=== PATIENT | female | born 1955 | race Caucasian/White ===

== ENCOUNTER → 2016-11-08 | Outpatient (CLI) | payer OTHER ==
--- NOTE | 2016-11-08 18:14 | US ---
EXAMINATION TYPE: US venous doppler duplex LE LT DATE OF EXAM: 11/08/2016 5:20 PM COMPARISON: Prior December 02, 2015 CLINICAL HISTORY: Edema R60.0 LLE. History of DVT in left leg. Patient currently taking blood thinner s SIDE PERFORMED: Left TECHNIQUE: The lower extremity deep venous system is examined utilizing real time linear array sonog ha with graded compression, doppler sonography and color-flow sonography. VESSELS IMAGED: External Iliac Vein (EIV) Common Femoral Vein Deep Femoral Vein Greater Saphenous Vein * Femoral Vein Popliteal Vein Small Saphenous Vein * Proximal Calf Veins (* superficial vessels) LEFT LOWER EXTREMITY IMPRESSION: REDEMONSTRATION OF NONOCCLUDING DVT FROM THE PROXIMAL FEMORAL VEIN TO THE MID POPLITEAL VEIN; NEGATIVE FOR ACUTE DVT.
== END | disposition home or self-care (01) ==
LOC: RADUSMAIN 16:52
PROVIDERS: ATTEND Family Medicine
DX: I82.512 Chronic embolism and thrombosis of left femoral vein (principal); I82.532 Chronic embolism and thrombosis of left popliteal vein

== ENCOUNTER → 2018-03-29 | Outpatient (CLI) | payer OTHER ==
--- NOTE | 2018-03-29 15:43 | CT ---
EXAMINATION TYPE: CT brain austin martinez DATE OF EXAM: 03/29/2018 COMPARISON: Prior CT 12/10/2015 HISTORY: Patient complains of headache and dizziness post blow to head. CT DLP: 1046.4 mGycm Automated exposure control for dose reduction was used. TECHNIQUE: CT scan of the head and cervical spine are performed without contrast. FINDINGS: There is no acute intracranial hemorrhage, mass effect, or midline shift identified. The ventricles and sulci are within normal limits in size. The globes are intact and the visualized sin uses are clear. White matter demyelination changes are again noted. Cervical spine is visualized in its entirety from C1 through upper thoracic levels and demonstrates s atisfactory alignment without evidence of acute fracture or dislocation. Multilevel spondylosis is pr esent, minimal anterolisthesis grade 1 C2-3, C3-4, retrolisthesis grade 1 C5-6 and C6-7. There is los s of disc height C5-6 and C6-7 with spondylosis. Facet arthropathy changes are present. Prevertebral soft tissue appears within normal limits. Multilevel foraminal encroachment is present. The C1-C2 ar ticulation is unremarkable. IMPRESSION: 1. There is no acute fracture or dislocation evident in the cervical spine. Degenerative disc disease and facet arthropathy. 2. No acute intracranial hemorrhage, mass effect, or midline shift is seen.
== END | disposition home or self-care (01) ==
LOC: RADCTMAIN 15:04
PROVIDERS: ATTEND Nurse Practitioner Family
DX: S09.90XA Unspecified injury of head, initial encounter (principal)
CPT/HCPCS: 70450; 72125

== ENCOUNTER 2018-08-02 13:47 | Observation (INO) | payer OTHER ==
[2018-08-02] MEDS ORDERED: ASPIRIN 81 MG PO STA (14:41)
[2018-08-02] MEDS ORDERED: MORPHINE SULFATE 2 MG/ML SYRINGE IVP ONE (15:01)
[2018-08-02 15:23] LABS: Basophils % (A) 0 %; Eosinophils # (A) 0.3 k/uL (0-0.7); Eosinophils % (A) 4 %; HGB 13.8 gm/dL (11.4-16.0); Lymphocytes # (A) 1.8 k/uL (1.0-4.8); Lymphocytes % (A) 24 %; MCHC 33.6 g/dL (31.0-37.0); MCV 95.3 fL (80.0-100.0); Mean Platelet Volume 7.7; Monocytes # (A) 0.4 k/uL (0-1.0); Monocytes % (A) 5 %; Neutrophils # (A) 4.9 k/uL (1.3-7.7); Neutrophils % (A) 65 %; Platelet Count 181 k/uL (150-450); RDW 12.5 % (11.5-15.5); WBC 7.5 k/uL (3.8-10.6)
[2018-08-02 15:34] LABS: ALT 27 U/L (9-52); AST 23 U/L (14-36); Albumin 4.2 g/dL (3.5-5.0); Alkaline Phosphatase 48 U/L (38-126); Anion Gap 8 mmol/L; Blood Urea Nitrogen 17 mg/dL (7-17); Calcium 9.4 mg/dL (8.4-10.2); Carbon Dioxide 23 mmol/L (22-30); Chloride 108 mmol/L (98-107); Glucose 93 mg/dL (74-99); Magnesium 1.9 mg/dL (1.6-2.3); Sodium 139 mmol/L (137-145); Total Bilirubin 0.5 mg/dL (0.2-1.3); Total Protein 6.4 g/dL (6.3-8.2)
--- NOTE | 2018-08-02 15:37 | ED ---
Chest Pain HPI - General Chief Complaint: Chest Pain Stated Complaint: Chest tightness, shoulder pain, nausea Time Seen by Provider: 08/02/18 14:36 Source: patient, RN notes reviewed, old records reviewed Mode of arrival: ambulatory Limitations: no limitations - History of Present Illness Initial Comments: Patient is a 63-year-old female presents emergency room today with complaints of chest tightness. Patient reports symptoms started after she had a THC pill and THC, last night. Patient reports that she took this because she has chronic pain within her back. She reports she had a rapid heart rate at that time EMS was called to the house. Patient complains of chest tightness since that time. Patient states that she's had associated shortness of breath. She denies any coughing or fevers. She reports she has history of CVA. She is currently on L Alfred. - Related Data Home Medications Medication Instructions Recorded Confirmed Citalopram Hydrobromide [CeleXA] 40 mg PO DIRECTED 12/10/15 08/02/18 Rivaroxaban [Xarelto] 15 mg PO DIRECTED 12/10/15 08/02/18 Acetaminophen [Tylenol Extra 500 mg PO Q6H PRN 08/02/18 08/02/18 Strength] Ascorbic Acid [Vitamin C] 500 mg PO DAILY 08/02/18 08/02/18 Atorvastatin [Lipitor] 80 mg PO DAILY 08/02/18 08/02/18 Cyanocobalamin (Vitamin B-12) 1,000 mcg PO 08/02/18 [Vitamin B-12] Gabapentin [Neurontin] 300 mg PO DIRECTED 08/02/18 08/02/18 Ranitidine HCl [Zantac] 150 mg PO BID 08/02/18 08/02/18 rOPINIRole HCL [Requip] 0.5 mg PO DIRECTED 08/02/18 08/02/18 Allergies Allergy/AdvReac Type Severity Reaction Status Date / Time gluten Allergy Mild Diarrhea Verified 08/02/18 15:15 Review of Systems ROS Statement: Those systems with pertinent positive or pertinent negative responses have been documented in the HPI. ROS Other: All systems not noted in ROS Statement are negative. EKG Findings - EKG Comments: EKG Findings:: EKG shows normal sinus rhythm EKG. Ventricular rate 69 bpm. SC interval is 154 ms. QS duration 68 ms. QT QTc is 422/452 ms. Past Medical History Past Medical History: Asthma, CVA/TIA, Hyperlipidemia, Hypertension Additional Past Medical History / Comment(s): 2014 CVA with minimal L sided weakness, unsure if she has had a TIA in the past, celiac disease is on gluten free diet, UTi, cervical herniated discs-neck pain, past asthma, L leg DVTs x 2 , old medical record indicates hiatal hernia and positive rheumatiod factor but pt states she is unsure of these, past migraines, sinus problems, seasonal allergies, History of Any Multi-Drug Resistant Organisms: None Reported Past Surgical History: Tonsillectomy Additional Past Surgical History / Comment(s): ANJALI in 2013, colonoscopy. Melanomia removed in feb 2018 Past Anesthesia/Blood Transfusion Reactions: No Reported Reaction Past Psychological History: Depression Smoking Status: Never smoker Past Alcohol Use History: Occasional Past Drug Use History: None Reported - Past Family History Father History Unknown: Yes Additional Family Medical History / Comment(s): Pt does not know mother or father hx- she is adopted. General Exam - General Exam Comments Initial Comments: 63-year-old female. Alert and oriented. No distress. General: Well appearing, well nourished, in no distress. Oriented x 3, normal mood and affect . Ambulating without difficulty. Skin: Good turgor, no rash, unusual bruising or prominent lesions Hair: Normal texture and distribution. Mouth: Mucous membranes moist, no mucosal lesions. Teeth/Gums: No obvious caries or periodontal disease. No gingival inflammation or significant resorption. Pharynx: Mucosa non-inflamed, no tonsillar hypertrophy or exudate Neck: Supple, without lesions, bruits, or adenopathy, thyroid non-enlarged and non-tender Heart: No cardiomegaly or thrills; regular rate and rhythm, no murmur or gallop Lungs: Clear to auscultation and percussion Abdomen: Bowel sounds normal, no tenderness, organomegaly, masses, or hernia Back: Spine normal without deformity or tenderness, no CVA tenderness Extremities: No amputations or deformities, cyanosis, edema or varicosities, peripheral pulses intact Musculoskeletal: Normal gait and station. No misalignment, asymmetry, crepitation, defects, tenderness, masses, effusions, decreased range of motion, instability, atrophy or abnormal strength or tone in the head, neck, spine, ribs , pelvis or extremities. Neurologic: CN 2-12 normal. Sensation to pain, touch, and proprioception normal. DTRs normal in upper and lower extremities. No pathologic reflexes. Psychiatric: Oriented X3, intact recent and remote memory, judgment and insight , normal mood and affect. Limitations: no limitations Course Vital Signs 08/02/18 13:58 Temperature 98.1 F Pulse Rate 77 Respiratory 18 Rate Blood Pressure 141/68 O2 Sat by Pulse 98 Oximetry Chest Pain MDM - MDM 63-year-old female presents emergency from today with 1 day of chest tightness. She reports symptoms are worse with taking a deep breath. Remaining towards her back. Patient's EKG was negative for any acute process. Patient's initial troponin today is negative. D-dimer is normal. Chest x-ray shows Minimal lingular infiltrate cardiac apex most likely subsegmental atelectasis. Patient was reevaluated afterwards she is complaining of some chest discomfort. With her history of CVA, hyperlipidemia and family history of risk factors would like to put the Patient for repeat troponin test. She is never seen a tomography technologist or had any stress test. Disposition Clinical Impression: Chest pain Disposition: ADMITTED IP TO THIS HOSP Condition: Stable Is patient prescribed a controlled substance at d/c from ED?: No Referrals: Jared Serrano DO [Primary Care Provider] - 1-2 days Time of Disposition: 16:42
[2018-08-02 15:45] LABS: D-Dimer 0.18 mg/L FEU (<0.60); INR 1.1 (<1.2); Partial Thromboplastin Time 28.3 sec (22.0-30.0); Prothrombin Time 11.4 sec (9.0-12.0)
--- NOTE | 2018-08-02 15:50 | XR ---
EXAMINATION TYPE: XR chest 2V DATE OF EXAM: 08/02/2018 COMPARISON: 12/10/2015 INDICATION: Chest pain shoulder pain nausea TECHNIQUE: Frontal and lateral views of the chest are obtained. FINDINGS: The heart size is normal. The pulmonary vasculature is normal. Minimal opacity is present at the cardiac apex. Some subsegmental atelectasis may be present. The florentin gs are otherwise clear.. IMPRESSION: 1. Minimal lingular infiltrate cardiac apex most likely subsegmental atelectasis.
[2018-08-02] MEDS ORDERED: NITROGLYCERIN SL TABS 0.4 MG TAB SUBLINGUAL PRN (16:42)
[2018-08-02] MEDS ORDERED: ACETAMINOPHEN TAB 500 MG TAB PO PRN (22:41)
[2018-08-02 22:50] LABS: Cholesterol 164 mg/dL (<200); HDL Cholesterol 58 mg/dL (40-60); LDL Cholesterol,Calculated 77 mg/dL (0-99); Triglycerides 143 mg/dL (<150)
[2018-08-02] MEDS ORDERED: ZOLPIDEM 5 MG TAB PO PRN (22:53)
[2018-08-03] MEDS: FAMOTIDINE 20 MG TAB PO SCH ×2 (02:14→17:03)
[2018-08-03 08:01] VITALS: RESP 18
[2018-08-03] MEDS ORDERED: CITALOPRAM HYDROBROMIDE 20 MG TAB PO SCH (09:00)
[2018-08-03] MEDS ORDERED: CYANOCOBALAMIN 500 MCG TAB PO SCH (09:00)
[2018-08-03] MEDS ORDERED: ASPIRIN 325 MG TAB PO SCH (09:00)
[2018-08-03] MEDS ORDERED: RIVAROXABAN 15 MG TAB PO SCH (09:00)
[2018-08-03] MEDS ORDERED: ATORVASTATIN 80 MG TAB PO SCH (09:00)
[2018-08-03] MEDS ORDERED: ASPIRIN 81 MG PO SCH (09:00)
[2018-08-03] MEDS ORDERED: ASCORBIC ACID 500 MG TAB PO SCH (09:00)
[2018-08-03] MEDS ORDERED: BACLOFEN 10 MG TAB PO SCH (14:21)
[2018-08-03] MEDS ORDERED: LISINOPRIL-HCTZ 10-12.5 MG 1 EACH TAB PO SCH (14:30)
--- NOTE | 2018-08-03 15:06 | HP ---
HISTORY AND PHYSICAL DATE OF ADMISSION: 08/02/2018 DATE OF SERVICE: 08/03/2018 PRESENT COMPLAINT: Chest pain. HISTORY OF PRESENTING COMPLAINT: A very pleasant 63-year-old patient of Dr. Ortega, chronic stable medical conditions include hypertension, hyperlipidemia, herniated disc in cervical spine, depression, celiac disease, hiatal hernia. Patient presents with 2 days of pain in the back of the head, neck, arms, tightness in the chest. No cough. No shortness of breath. Did feel a bit dizzy and tired. No swelling of the legs. No fever and no chills. No sputum production, presented for the same. No prior cardiac history. Feels a little bit better since she has been here. REVIEW OF SYSTEMS: CONSTITUTIONAL: None. HEENT As above. RESPIRATORY: None. CARDIOVASCULAR: As above GASTROINTESTINAL: None. GENITOURINARY: None. MUSCULOSKELETAL: Occasional neck pain. DERMATOLOGICAL; None. HEMATOLOGICAL: None. LYMPHATIC: None. PSYCHIATRY: None. NEUROLOGICAL: None. PAST MEDICAL HISTORY: Asthma, slight left-sided weakness prior stroke, DVT, hyperlipidemia, hypertension, pulmonary embolism, celiac disease and gluten-free diet, cervical herniated disc, hiatal hernia. PAST SURGICAL HISTORY: Tonsillectomy, ANJALI in 2013, melanoma removed. PSYCH HISTORY: Depression. SOCIAL HISTORY: , no smoking, alcohol occasionally. FAMILY HISTORY: Patient is adopted. HOME MEDICATIONS: 1. Vitamin B12 one thousand mcg p.o. daily. 2. Vitamin C 500 mg p.o. daily. 3. Requip 0.5 mg q.h.s. 4. Aspirin 81 mg p.o. daily. 5. Celexa 40 mg p.o. daily. 6. Xarelto 50 mg p.o. daily. 7. Zantac 150 mg b.i.d. 8. Lipitor 80 mg p.o. daily. 9. Tylenol 500 mg q.6 p.r.n. 10.Wellbutrin. 11.Neurontin. ALLERGIES: To GLUTEN. PHYSICAL EXAMINATION: Vital signs on presentation: Temperature 98.1, pulse 77, respirations 18, blood pressure 114/68, pulse 98% on room air. GENERAL APPEARANCE: Average built, sitting up, not in distress. EYES: Pupils equal, conjunctivae are normal. HEENT: External appearance of nose and ears normal. Oral cavity normal. NECK: JVD not raised. Mass not palpable. RESPIRATORY: Effort normal. LUNGS: Fair entry. CARDIOVASCULAR: First and second sounds normal. No edema. ABDOMEN: Soft, nontender. Liver and spleen not palpable. LYMPHATIC: No lymph node palpable. PSYCHIATRY: Alert and oriented x3. Mood and affect normal. NEUROLOGICAL: Pupils equal. Cranial nerves grossly intact. Power and sensation grossly intact. MUSCULOSKELETAL: No tenderness over the cervical spine. No tenderness at the nuchal ridge. INVESTIGATIONS: Reviewed in the clinical context. White count 7.5, hemoglobin 13.8, potassium 4.0, BUN and creatinine normal, troponin x3 negative. EKG tracing shows normal sinus rhythm. Chest x-ray with somewhat elevated right diaphragm, It is possible, some atelectasis. ASSESSMENT: 1. Patient presents with pain at the back of the head, shoulder, some arm, anterior chest wall pain. This is a rather atypical presentation for cardiac, but need to rule out the same. Patient does have a chronic herniated disc problem and this could be referred pain from the same. Again, would not expect anterior chest wall pain. Patient has no tenderness at the nuchal line. Will get a Cardiology consultation and possibly get a stress test. 2. Hyperlipidemia. 3. Essential hypertension. 4. Chronic cervical spine herniated disc. 5. Depression, not otherwise specified. 6. Chronic celiac disease. 7. Hiatal hernia. PLAN: Home medications are resumed. Cardiology was consulted who is planning for a stress test. Will do an x-ray of the cervical spine. Patient's blood pressure is running a bit on the high side. Will add lisinopril hydrochlorothiazide. Will also do a cervical spine x-ray. Care was discussed with the patient. Questions were answered. MMODL / IJN: [id number] /
--- NOTE | 2018-08-03 15:48 | NM ---
EXAMINATION TYPE: NM stress cardiolite complete DATE OF EXAM: 08/03/2018 COMPARISON: NONE HISTORY: 63-year-old female with chest pain, hypertension, CVA, high cholesterol, COPD TECHNIQUE: After the intravenous administration of 9.5 mCi Tc 99m Sestamibi - Rest images obtained 9 0 minutes post injection. The patient exercised using a MILADY protocol and 1 minute prior to peak e xercise was injected with 22 mCi Tc 99m Sestamibi - Stress images obtained 15 minutes post injection. FINDINGS: Targeted heart rate was achieved during performance of the study. Patient experienced shortness of br eath during the treadmill stress. 88% maximal heart rate achieved. Review of stress and rest SPECT im ages demonstrates no distinct perfusion abnormality. Gated analysis shows normal wall motion with an estimated left ventricular ejection fraction of 70 %. TID is calculated at 0.92, within normal limi ts. IMPRESSION: No scintigraphic evidence for reversible ischemia
[2018-08-03 16:42] VITALS: BP 148/78; PULSE 78; TEMP 97.6
--- NOTE | 2018-08-03 16:49 | XR ---
EXAMINATION TYPE: XR cervical spine w flex/ext DATE OF EXAM: 08/03/2018 COMPARISON: 09/05/2013 HISTORY: Neck pain TECHNIQUE: 7 views FINDINGS: There is degenerative disc space narrowing at C5-6 C6-7 with moderate spurring. There is 4 mm anterior subluxation of C4 in relation to C5. The posterior elements appear intact. There are no c ervical ribs. There is uncovertebral spurring and neural foraminal impingement bilaterally at C5-6. T he flexion extension views show no instability. IMPRESSION: There is a degenerative first-degree C4-5 spondylolisthesis. Spondylotic changes. Overall no significant change compared to old exam. No instability demonstrated on the flexion and extension views.
--- NOTE | 2018-08-03 20:38 | P.CRDCN ---
History of Present Illness Consult date: 08/03/18 Chief complaint: Chest pain History of present illness: This is a pleasant 63-year-old female patient with a past medical history significant for hypertension as well as dyslipidemia presented to the emergency room complaining of chest discomfort. She was in her usual state of health until about a few days ago when she started experiencing discomfort in the upper chest as well as in the neck and arms. No associated symptoms of shortness of breath, sweating, dizziness or lightheadedness, or syncope. No feeling of heart racing or fluttering. The patient was ruled out for acute coronary event. The chest x-ray did not show any acute abnormalities. The cardiac enzymes were checked and came in to be unremarkable. The EKG did not show any acute abnormalities as well. Past Medical History Past Medical History: Asthma, CVA/TIA, Deep Vein Thrombosis (DVT), Hyperlipidemia, Hypertension, Pulmonary Embolus (PE) Additional Past Medical History / Comment(s): 2013 CVA with minimal L sided weakness, unsure if she has had a TIA in the past, celiac disease is on gluten free diet, UTi, cervical herniated discs-neck pain, past astham, hiatal hernia. past migraines, sinus problems, seasonal allergies, History of Any Multi-Drug Resistant Organisms: None Reported Past Surgical History: Tonsillectomy Additional Past Surgical History / Comment(s): ANJALI in 2013, colonoscopy. Melanoma removed in feb 2018 Past Anesthesia/Blood Transfusion Reactions: No Reported Reaction Past Psychological History: Depression Smoking Status: Never smoker Past Alcohol Use History: Occasional Past Drug Use History: None Reported - Past Family History Father History Unknown: Yes Additional Family Medical History / Comment(s): Pt does not know mother or father hx- she is adopted. Medications and Allergies Home Medications Medication Instructions Recorded Confirmed Type Citalopram Hydrobromide [CeleXA] 40 mg PO DAILY 12/10/15 08/02/18 History Rivaroxaban [Xarelto] 15 mg PO DAILY 12/10/15 08/02/18 History Acetaminophen [Tylenol Extra 500 mg PO Q6H PRN 08/02/18 08/02/18 History Strength] Ascorbic Acid [Vitamin C] 500 mg PO DAILY 08/02/18 08/02/18 History Aspirin [Adult Low Dose Aspirin EC] 81 mg PO DAILY 08/02/18 08/02/18 History Atorvastatin [Lipitor] 80 mg PO DAILY 08/02/18 08/02/18 History Cyanocobalamin (Vitamin B-12) 1,000 mcg PO DAILY 08/02/18 08/02/18 History [Vitamin B-12] Gabapentin [Neurontin] 300 mg PO DIRECTED 08/02/18 History Ranitidine HCl [Zantac] 150 mg PO BID 08/02/18 08/02/18 History buPROPion [Wellbutrin] 08/02/18 History rOPINIRole HCL [Requip] 0.5 mg PO HS 08/02/18 08/02/18 History Baclofen 5 mg PO Q8H PRN #15 tablet 08/03/18 Rx Lisinopril-Hctz 10-12.5 mg 1 each PO BID #60 tab 08/03/18 Rx [Zestoretic 10-12.5] Allergies Allergy/AdvReac Type Severity Reaction Status Date / Time gluten Allergy Mild Diarrhea Verified 08/02/18 21:45 Physical Exam Vitals: Vital Signs Temp Pulse Pulse Pulse Resp BP BP 08/03/18 16:00 97.6 F 78 18 148/78 08/03/18 12:00 98.5 F 76 18 165/104 08/03/18 08:00 98.1 F 76 18 165/81 08/03/18 04:00 98.0 F 67 15 116/62 08/03/18 02:56 16 08/03/18 00:00 97.9 F 66 16 160/71 08/02/18 22:20 17 08/02/18 21:29 66 17 160/91 Pulse Ox 08/03/18 16:00 97 08/03/18 12:00 08/03/18 08:00 93 L 08/03/18 04:00 97 08/03/18 02:56 08/03/18 00:00 97 08/02/18 22:20 08/02/18 21:29 97 Intake and Output 08/03/18 08/03/18 08/03/18 06:59 14:59 22:59 Other: Voiding Method Toilet Toilet Toilet # Voids 1 2 Weight 72.575 kg - Constitutional General appearance: no acute distress - Cardiovascular Rhythm: regular Heart sounds: Results 08/02/18 15:02 08/02/18 15:02 Cardiac Enzymes 08/02/18 08/03/18 Range/Units 21:00 02:30 Troponin I <0.012 <0.012 (0.000-0.034) ng/mL Lipids 08/02/18 Range/Units 15:02 Triglycerides 143 (<150) mg/dL Cholesterol 164 (<200) mg/dL HDL Cholesterol 58 (40-60) mg/dL Intake and Output 08/03/18 08/03/18 08/03/18 06:59 14:59 22:59 Other: Voiding Method Toilet Toilet Toilet # Voids 1 2 Weight 72.575 kg Patient Weight 08/04/18 06:59 Weight 72.575 kg 08/02/18 15:02 08/02/18 15:02 Assessment and Plan Assessment: Assessment #1 atypical chest discomfort #2 multiple risk factors for CAD Plan #1 the patient was ruled out for acute coronary event #2 I recommended proceeding with a stress test #3 further recommendation to follow that Thank you for allowing us participate in her care
--- NOTE | 2018-08-04 09:24 | EST ---
EXERCISE STRESS DATE OF SERVICE: 08/03/2018 AGE: 63 SEX: Female HT: 67" WT: 160 pounds PROTOCOL: Cardiolite Joshua STAGE: I DURATION OF EXERCISE: 3 minutes HEART RATE REST: 70 BLOOD PRESSURE REST: 150/78 MAXIMUM HEART RATE ACHIEVED: 140 MAXIMUM BLOOD PRESSURE: 233/89 85% MPHR: 135 100% MPHR: 159 METS: 4.6 INDICATIONS: Chest pain. CLINICAL INFORMATION: STRESS DATA: Pretesting physical examination showed heart rate of 70, pressure is 150/78 mmHg. Baseline EKG showed sinus mechanism. The patient exercised on the treadmill according to Joshua protocol for a total of 3 minutes and achieved 4.6 METs. Max heart rate was 123, which is about 88% of maximum predicted heart rate. Maximum blood pressure was 233/89 mmHg. Clinically the patient did not have any symptoms of chest pain or chest discomfort. The EKG did not show any significant ST or T-wave abnormalities concerning for ischemia. CONCLUSION: 1. Poor exercise tolerance. 2. Normal EKG in response to exercise. 3. Please follow up on the Cardiolite portion on separate report from radiology department. MMODL / IJN: [id number] /
--- NOTE | 2018-08-06 08:32 | DS ---
DISCHARGE SUMMARY DATE OF ADMISSION: 08/02/18. DATE OF DISCHARGE: 08/03/18. FINAL DIAGNOSES: 1. Acute neck pain from acute flare-up of osteoarthritis at C4-C5. 2. Chest pain, probably musculoskeletal. 3. Hyperlipidemia. 4. Essential hypertension. 5. Depression, not otherwise specified. 6. Chronic celiac disease. 7. Hiatal hernia. HOSPITAL COURSE: This patient with chest and neck pain. There was no tenderness at the nuchal line. Nuclear stress test was negative. Cervical spine flexion-extension did show evidence of arthritis at C4-C5 level. CONSULTATION: Dr. Colunga from Cardiology. EXAMINATION: Afebrile, pulse 72, respiratory 18, blood pressure 140/78, pulse ox 97% on room air. LUNGS: Fair entry. CARDIOVASCULAR: 1st and 2nd sounds normal. DISCHARGE MEDICATIONS: 1. Celexa 40 mg a day. 2. Xarelto 50 mg a day. 3. Tylenol 500 mg q.6h p.r.n. 4. Vitamin C 500 mg p.o. daily. 5. Aspirin 81 mg a day. 6. Lipitor 80 mg a day. 7. Vitamin B12 1000 mcg a day. 8. Neurontin. 9. Aspirin. 10.Zantac 150 mg b.i.d. 11.Wellbutrin as before. 12.Requip 0.5 mg q.h.s. 13.Baclofen 5 mg p.o. p.r.n. 14.Zestoretic 03/10.5 one tab p.o. b.i.d. FOLLOWUP: Follow up with Dr. Colunga in 1 week, follow with Dr. Serrano in 3 days. MMODL / IJN: [id number] /
== END 2018-08-03 19:03 | disposition home or self-care (01) ==
LOC: EC 13:47 → 1SOBS 16:57
PROVIDERS: ADMIT Hospitalist; ATTEND Hospitalist
DX: R07.89 Other chest pain (principal); R11.0 Nausea; R06.02 Shortness of breath; R51 Headache; R00.0 Tachycardia, unspecified; M79.602 Pain in left arm; M79.601 Pain in right arm; R42 Dizziness and giddiness; R53.83 Other fatigue; M25.519 Pain in unspecified shoulder; E78.5 Hyperlipidemia, unspecified; I10 Essential (primary) hypertension; G89.29 Other chronic pain; M54.9 Dorsalgia, unspecified; K90.0 Celiac disease; J45.909 Unspecified asthma, uncomplicated; K44.9 Diaphragmatic hernia without obstruction or gangrene; G43.909 Migraine, unspecified, not intractable, without status migrainosus; M50.20 Other cervical disc displacement, unspecified cervical region; F32.9 Major depressive disorder, single episode, unspecified; I69.354 Hemiplegia and hemiparesis following cerebral infarction affecting left non-dominant side; Z79.01 Long term (current) use of anticoagulants; Z79.899 Other long term (current) drug therapy; Z79.82 Long term (current) use of aspirin; Z91.018 Allergy to other foods; Z87.440 Personal history of urinary (tract) infections; Z86.711 Personal history of pulmonary embolism; Z85.820 Personal history of malignant melanoma of skin; Z86.718 Personal history of other venous thrombosis and embolism
CPT/HCPCS: 96374; 99285; 36415; 93005; 93017; 85379; 83880; 80061; 80053; 83735; 84484 ×2; 85025; 85610; 85730; 72052; 71046; 78452; G0378 ×2; A9500; J2270

== ENCOUNTER 2018-10-13 08:39 | Emergency (ER) | payer OTHER ==
[2018-10-13 09:05] VITALS: BP 127/68; PULSE 83; RESP 16; TEMP 97.6
--- NOTE | 2018-10-13 09:59 | CT ---
EXAMINATION TYPE: CT lumbar spine wo con DATE OF EXAM: 10/13/2018 9:52 AM COMPARISON: None HISTORY: Low back pain and leg weakness post fall [address] DLP: 701 mGycm Automated exposure control for dose reduction was used. TECHNIQUE: Unenhanced CT of the lumbar spine was performed. Bone and soft tissue window settings are submitted as well as coronal and sagittal reconstructions. FINDINGS: The lumbar spine vertebral bodies maintain normal vertebral body heights and alignment. The re is very minimal anterior vertebral body height loss of T12 of approximately 10%. This is age-indet erminate without retropulsion. Multilevel anterior osteophytes, endplate sclerosis, and vacuum disc d isease are seen. Multilevel facet arthropathy is also noted. Calcification of the L5-S1 intervertebra l disc is incidentally identified. No significant scoliosis. Transverse processes and pedicles appear unremarkable. No acute fracture or malalignment in the lumbar spine. Nonobstructing 5 mm right renal calculus is incidentally noted. Extensive atherosclerosis of the abdominal aorta and its branches ar e seen. L1-L2: There is a broad-based disc bulge resulting in mild bilateral neural foraminal narrowing witho ut spinal canal stenosis. L2-L3: There is mild facet arthropathy and ligamentum flavum buckling as well as a broad-based disc b ulge resulting in mild to moderate bilateral neural foraminal narrowing without appreciable spinal ca nal stenosis on CT. L3-L4: There is mild facet arthropathy and a broad-based disc bulge creating mild bilateral neural fo raminal narrowing, right greater than left as the disc bulges right eccentric. No spinal canal stenos is. L4-L5: There is a small broad-based disc bulge without significant neural foraminal narrowing or spin al canal stenosis. L5-S1: Normal disc space height. No disc herniation protrusion or central stenosis. No facet joint arthropathy. No evidence for foraminal encroachment. IMPRESSION: 1. Age-indeterminate mild compression deformity of the T12 vertebral body with vertebral body height loss of approximately 10%. No retropulsion. 2. No evidence of acute fracture or malalignment of the lumbar spine. 3. Multilevel degenerative disc disease of the lumbar spine creating variable degrees of neural george inal narrowing as described above without discrete spinal canal stenosis on CT although this would be better characterized on MRI with attention to the L3-L4 vertebral level, greatest level of degenerat radha disc disease). 4. Incidentally noted nonobstructing right renal calculus.
--- NOTE | 2018-10-13 10:07 | CT ---
EXAMINATION TYPE: CT brain [place] lui con DATE OF EXAM: 10/13/2018 COMPARISON: 03/29/2018 HISTORY: Fall 4 days ago. Right sided posterior head injury CT DLP: 1298.6 mGycm. Automated Exposure Control for Dose Reduction was Utilized. TECHNIQUE: CT scan of the head and cervical spine are performed without contrast. FINDINGS: There is no acute intracranial hemorrhage, mass effect, or midline shift identified. The re is an unchanged old punctate lacunar injury of the left posterior parietal lobe in the deep white matter on image 34. There is also a punctate lacunar injury of the right basal ganglia that appears o ld extending into the mack radiata. Patchy areas of hypoattenuation are seen within the periventric ular subcortical white matter. Cerebellar tonsils are noted to be low-lying without herniation. The v entricles and sulci are symmetrically prominent compatible with age-related volume loss similar. The globes are intact and the visualized sinuses are clear. Incidentally noted hyperostosis frontalis in ternus. Cervical spine is visualized in its entirety from C1 through upper thoracic levels and demonstrates s atisfactory vertebral body heights. There is chronic likely degenerative malalignment with grade 1 an terolisthesis of C3 on C4 and C4 and C5 and posterior disc osteophyte complexes at C5-C6 and C6-C7. S clerosis of the C5 and C6 vertebral bodies are likely on a degenerative basis as a predominantly at t he endplates. Multilevel Schmorl's nodes are seen. Uncovertebral hypertrophy and facet arthropathy ar e present crating neural foraminal narrowing at C5-C6 and C6-C7. Incidentally noted atherosclerosis o f the carotid bulbs. Prevertebral soft tissue appears within normal limits. The C1-C2 articulation i s unremarkable. Minimal emphysematous changes are seen of the lung apices with scattered areas of at electasis. IMPRESSION: 1. There is no acute fracture evident in the cervical spine. 2. No acute intracranial hemorrhage, mass effect, or midline shift is seen. 3. Old lacunar injuries and moderate degree of nonspecific white matter change. 4. Moderate degenerative disc disease most focal at C5-C6 and C6-C7 with multilevel malalignment of t he cervical spine likely on a degenerative basis stable from the prior.
--- NOTE | 2018-10-13 11:44 | ED ---
General Adult HPI - General Chief complaint: Fall Stated complaint: Leg pain Time Seen by Provider: 10/13/18 09:11 Source: patient, RN notes reviewed Mode of arrival: ambulatory Limitations: no limitations - History of Present Illness Initial comments: 63-year-old female presents to the emergency department for a chief complaint of back pain. Patient states that she fell 5 days ago while trying to get in her truck. Patient states she did hit her head and has had a headache since that time. Patient is under all toe. Patient states that she has low back pain as well. States it is going into her legs bilaterally when she tries to lift them. She denies any weakness in her lower extremities but states she does have some pain with movement. Patient also admits to some paresthesias in her left foot. Denies when her bowel changes. Denies saddle anesthesia.Patient has no other complaints at this time including shortness of breath, chest pain, abdominal pain, nausea or vomiting, headache, or visual changes. - Related Data Home Medications Medication Instructions Recorded Confirmed Rivaroxaban [Xarelto] 15 mg PO DAILY 12/10/15 10/13/18 Aspirin [Adult Low Dose Aspirin EC] 81 mg PO DAILY 08/02/18 10/13/18 Atorvastatin [Lipitor] 80 mg PO DAILY 08/02/18 10/13/18 Ranitidine HCl [Zantac] 150 mg PO BID 08/02/18 10/13/18 Lisinopril-Hctz 10-12.5 mg 1 tab PO BID 10/13/18 10/13/18 [Zestoretic 10-12.5] Previous Rx's Medication Instructions Recorded Baclofen 5 mg PO Q8H PRN #15 tablet 08/03/18 HYDROcodone/APAP 5-325MG [[place] 1 tab PO Q6HR PRN #10 tab 10/13/18 5-325] Allergies Allergy/AdvReac Type Severity Reaction Status Date / Time gluten Allergy Mild Diarrhea Verified 10/13/18 09:20 Review of Systems ROS Statement: Those systems with pertinent positive or pertinent negative responses have been documented in the HPI. ROS Other: All systems not noted in ROS Statement are negative. 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 past migraines, sinus problems, seasonal allergies, History of Any Multi-Drug Resistant Organisms: None Reported Past Surgical History: Tonsillectomy Additional Past Surgical History / Comment(s): ANJALI in 2013, colonoscopy. Melanoma removed in feb 2018 Past Anesthesia/Blood Transfusion Reactions: No Reported Reaction Past Psychological History: Depression Smoking Status: Never smoker Past Alcohol Use History: Occasional Past Drug Use History: None Reported - Past Family History Father History Unknown: Yes Additional Family Medical History / Comment(s): Pt does not know mother or father hx- she is adopted. General Exam Limitations: no limitations General appearance: alert, in no apparent distress Head exam: Present: atraumatic, normocephalic, normal inspection Eye exam: Present: normal appearance, PERRL, EOMI. Absent: scleral icterus, conjunctival injection, periorbital swelling ENT exam: Present: normal exam, normal oropharynx, mucous membranes moist, TM's normal bilaterally, normal external ear exam Neck exam: Present: normal inspection, full ROM. Absent: tenderness, meningismus, lymphadenopathy Respiratory exam: Present: normal lung sounds bilaterally. Absent: respiratory distress, wheezes, rales, rhonchi, stridor Cardiovascular Exam: Present: regular rate, normal rhythm, normal heart sounds. Absent: systolic murmur, diastolic murmur, rubs, gallop, clicks GI/Abdominal exam: Present: soft, normal bowel sounds. Absent: distended, tenderness, guarding, rebound, rigid Extremities exam: Present: normal capillary refill (Capillary refill less than 2 seconds in bilateral lower extremities), other (Sensation intact in bilateral lower extremities, strength 5 out of 5 in BLE). Absent: calf tenderness (Tenderness or edema) Back exam: Absent: vertebral tenderness (No significant thoracic or lumbar spine tenderness. No point tenderness noted) Neurological exam: Present: alert, oriented X3, CN II-XII intact, normal gait (She is ambulatory without difficulty.) Psychiatric exam: Present: normal affect, normal mood Course Vital Signs 10/13/18 09:02 Temperature 97.6 F Pulse Rate 83 Respiratory 16 Rate Blood Pressure 127/68 O2 Sat by Pulse 97 Oximetry Medical Decision Making - Medical Decision Making 63-year-old female on several to presents for fall on Tuesday. Patient slipped and fell while getting into truck. Patient has had back pain since that time as well as a headache. CT brain shows no acute intracranial hemorrhage, mass effe ct, or midline shift. CT neck shows no acute fracture. CT lumbar spine shows a mild age indeterminate compression deformity of the T12 with vertebral body height loss of approximately 10%. No retropulsion. There is also multilevel degenerative disc disease and an incidentally noted a nonobstructing right renal factors. Patient does not have any neurologic deficits in the lower extremities. She will be given TLSO and [place]. Will f/u with Emily. Patient will return here if she has any worsening symptoms. Disposition Clinical Impression: T12 compression fracture, Fall Disposition: HOME SELF-CARE Condition: Good Instructions (If sedation given, give patient instructions): Vertebral Compression Fracture (ED) Additional Instructions: Please wear brace. Take [place] for pain. Follow-up with Dr. Diaz in the next 1-2 days. Return here her having any worsening symptoms. Prescriptions: HYDROcodone/APAP 5-325MG [[place] 5-325] 1 tab PO Q6HR PRN #10 tab PRN Reason: Pain Is patient prescribed a controlled substance at d/c from ED?: No Referrals: Jared Serrano DO [Primary Care Provider] - 1-2 days Roberto Diaz DO [Doctor of Osteopathic Medicine] - 1-2 days Time of Disposition: 11:42
[2018-10-13] MEDS ORDERED: HYDROcodone/APAP 5-325MG 1 EACH TAB PO STA (11:46)
== END 2018-10-13 12:01 | disposition home or self-care (01) ==
LOC: EC 08:39
DX: S22.080A Wedge compression fracture of T11-T12 vertebra, initial encounter for closed fracture (principal); M50.30 Other cervical disc degeneration, unspecified cervical region; M51.36 Other intervertebral disc degeneration, lumbar region; E78.5 Hyperlipidemia, unspecified; I10 Essential (primary) hypertension; F32.9 Major depressive disorder, single episode, unspecified; Z85.820 Personal history of malignant melanoma of skin; Z86.711 Personal history of pulmonary embolism; Z86.73 Personal history of transient ischemic attack (TIA), and cerebral infarction without residual deficits; Z86.718 Personal history of other venous thrombosis and embolism; Z79.82 Long term (current) use of aspirin; Z79.01 Long term (current) use of anticoagulants; Z79.899 Other long term (current) drug therapy; Z91.018 Allergy to other foods; W01.0XXA Fall on same level from slipping, tripping and stumbling without subsequent striking against object, initial encounter; Y92.89 Other specified places as the place of occurrence of the external cause
CPT/HCPCS: 70450; 72125; 72131; 99283

== ENCOUNTER → 2019-02-13 | Outpatient (CLI) | payer OTHER ==
--- NOTE | 2019-02-13 13:00 | US ---
EXAMINATION TYPE: US venous doppler duplex LE BI DATE OF EXAM: 02/13/2019 12:35 PM COMPARISON: NONE CLINICAL HISTORY: 64-year-old female M25.571 PAIN RT ANKLE,M25.572 PAIN LFT ANKLE, I80.9. SIDE PERFORMED: Bilateral TECHNIQUE: The lower extremity deep venous system is examined utilizing real time linear array sonog ha with graded compression, doppler sonography and color-flow sonography. FINDINGS: VESSELS IMAGED: External Iliac Vein (EIV) Common Femoral Vein Deep Femoral Vein Greater Saphenous Vein * Femoral Vein Popliteal Vein Small Saphenous Vein * Proximal Calf Veins Posterior tibial veins (* superficial vessels) Right Leg: Negative for DVT Left Leg: Negative for DVT IMPRESSION: No evidence for DVT within the bilateral lower extremities.
== END | disposition home or self-care (01) ==
LOC: RADUSWWP 11:49
PROVIDERS: ATTEND Orthopaedic Surgery
DX: M79.662 Pain in left lower leg (principal); M79.661 Pain in right lower leg; M25.571 Pain in right ankle and joints of right foot; M25.572 Pain in left ankle and joints of left foot
CPT/HCPCS: 93970

== ENCOUNTER 2019-03-02 07:18 | Day surgery (SDC) | payer OTHER ==
[2019-03-01 09:05] VITALS: BMI 25.0
--- NOTE | 2019-03-01 19:34 | P.GSHP ---
History of Present Illness H&P Date: 03/02/19 CHIEF COMPLAINT: GERD HISTORY OF PRESENT ILLNESS: The patient is a 64-year-old female who presents reports gastroesophageal reflux disease. Upper endoscopy was offered for further evaluation and management. PAST MEDICAL HISTORY: Please see list. PAST SURGICAL HISTORY: Please see list. MEDICATIONS: Please see list. ALLERGIES: Please see list. SOCIAL HISTORY: No illicit drug use FAMILY HISTORY: No reports of Crohn disease or ulcerative colitis. REVIEW OF ORGAN SYSTEMS: CONSTITUTIONAL: No reports of fevers or chills. GI: Denies any blood in stools or constipation. PHYSICAL EXAM: VITAL SIGNS: Stable GENERAL: Well-developed and pleasant in no acute distress. HEENT: No scleral icterus. Extraocular movements grossly intact. Moist buccal mucosa. NECK: Supple without lymphadenopathy. CHEST: Unlabored respirations. Equal bilateral excursions. CARDIOVASCULAR: Regular rate and rhythm. Distal 2+ pulses. ABDOMEN: Soft, nondistended. MUSCULOSKELETAL: No clubbing, cyanosis, or edema. ASSESSMENT: 1. Gastroesophageal reflux disease PLAN: 1. Recommend proceeding with an upper endoscopy Past Medical History Past Medical History: Asthma, Cancer, CVA/TIA, Deep Vein Thrombosis (DVT), GERD/Reflux, Hyperlipidemia, Hypertension, Pulmonary Embolus (PE) Additional Past Medical History / Comment(s): 2013 CVA with minimal L sided weakness, still has balance issues, celiac disease is on gluten free diet, UTi, cervical herniated discs-neck pain, hiatal hernia. past migraines, sinus problems, seasonal allergies, some dysphagia problems in October & November, is better now, hx. melanoma 2018 History of Any Multi-Drug Resistant Organisms: None Reported Past Surgical History: Tonsillectomy Additional Past Surgical History / Comment(s): ANJALI in 2013, colonoscopy. Melanoma removed in feb 2018 Past Anesthesia/Blood Transfusion Reactions: Postoperative Nausea & Vomiting (PONV) Smoking Status: Never smoker - Past Family History Father History Unknown: Yes Additional Family Medical History / Comment(s): Pt does not know mother or father hx- she is adopted. Medications and Allergies Home Medications Medication Instructions Recorded Confirmed Type Rivaroxaban [Xarelto] 15 mg PO DAILY 12/10/15 03/01/19 History Aspirin [Adult Low Dose Aspirin EC] 81 mg PO DAILY 08/02/18 03/01/19 History Atorvastatin [Lipitor] 80 mg PO DAILY 08/02/18 03/01/19 History HYDROcodone/APAP 5-325MG [[place] 1 tab PO Q6HR PRN #10 tab 10/13/18 03/01/19 Rx 5-325] Lisinopril-Hctz 10-12.5 mg 1 tab PO BID 10/13/18 03/01/19 History [Zestoretic 10-12.5] Celexa(Unknown Dose) 1 tab PO DAILY 03/01/19 History Pantoprazole [Protonix] 40 mg PO DAILY 03/01/19 03/01/19 History Wellbutrin(Unknown Dose) 1 tab PO BID 03/01/19 History Allergies Allergy/AdvReac Type Severity Reaction Status Date / Time gluten Allergy Mild Diarrhea Verified 03/01/19 08:36 topiramate [From Topamax] AdvReac dizziness,d Verified 03/01/19 08:36 isoriented
[~2019-03-02 07:18] MED LIST: LACTATED RINGERS 1,000 ML IV SCH
[2019-03-02 07:38] VITALS: TEMP 97.3
[2019-03-02] MEDS ORDERED: LIDOCAINE 1% 20 ML VIAL (10MG/ML) FOR IV START INTRADERMA ONE (07:38)
[2019-03-02] MEDS ORDERED: PROPOFOL 10 MG/ML 20 ML VIAL IV ONE (07:58)
[2019-03-02] MEDS ORDERED: LIDOCAINE 1% INJ 10MG/ML (20 ML MDV) ONE (07:58)
[2019-03-02 08:12] VITALS: RESP 16
--- NOTE | 2019-03-02 08:18 | P.PCN ---
Date of Procedure: 03/02/19 Description of Procedure: PREOPERATIVE DIAGNOSIS: Gastroesophageal reflux disease. Dysphagia History of chronic anticoagulant use POSTOPERATIVE DIAGNOSIS: Gastroesophageal reflux disease with erosive esophagitis Dysphagia Diaphragmatic hiatal hernia History of chronic anticoagulant use OPERATION: Esophagogastroduodenoscopy SURGEON: Inga Choi MD ANESTHESIA: MAC. INDICATIONS: The patient is a 64-year-old female who presents with a history of reflux disease and dysphagia. Benefits and risks of the procedure were described. Informed consent was obtained. DESCRIPTION: The patient was brought into the endoscopy suite and laid in the left lateral decubitus position. An Olympus gastroscope was passed along the posterior oropharynx down to the distal esophagus where the squamocolumnar junction was encountered at 33 cm from the incisors. The stomach was entered and no bile reflux was found. Additional findings are listed below. Biopsies with cold forceps were obtained of the antrum. The first through third portion of the duodenum was examined and unremarkable. Retroflexion of the scope confirmed Hill grade 4 lower esophageal valve. The squamocolumnar junction demonstrated LA grade B erosive esophagitis. The stomach was desufflated. The patient tolerated the procedure well. FINDINGS: Squamocolumnar junction 33 cm from the incisors. Diaphragmatic hiatus at 37 cm. Hiatal hernia, 4 cm Hill grade 4 lower esophageal valve. LA grade B erosive esophagitis. No active duodenitis. RECOMMENDATIONS: Upper endoscopy as needed. Plan - Discharge Summary Discharge Rx Participant: No New Discharge Prescriptions: No Action Rivaroxaban [Xarelto] 15 mg PO DAILY Atorvastatin [Lipitor] 80 mg PO DAILY Aspirin [Adult Low Dose Aspirin EC] 81 mg PO DAILY Lisinopril-Hctz 10-12.5 mg [Zestoretic 10-12.5] 1 tab PO BID HYDROcodone/APAP 5-325MG [[place] 5-325] 1 tab PO Q6HR PRN #10 tab PRN Reason: Pain Wellbutrin(Unknown Dose) 1 tab PO BID Pantoprazole [Protonix] 40 mg PO DAILY Celexa(Unknown Dose) 1 tab PO DAILY Discharge Medication List Rivaroxaban [Xarelto] 15 mg PO DAILY 12/10/15 [History] Aspirin [Adult Low Dose Aspirin EC] 81 mg PO DAILY 08/02/18 [History] Atorvastatin [Lipitor] 80 mg PO DAILY 08/02/18 [History] HYDROcodone/APAP 5-325MG [[place] 5-325] 1 tab PO Q6HR PRN #10 tab 10/13/18 [Rx] Lisinopril-Hctz 10-12.5 mg [Zestoretic 10-12.5] 1 tab PO BID 10/13/18 [History] Celexa(Unknown Dose) 1 tab PO DAILY 03/01/19 [History] Pantoprazole [Protonix] 40 mg PO DAILY 03/01/19 [History] Wellbutrin(Unknown Dose) 1 tab PO BID 03/01/19 [History] Follow up Appointment(s)/Referral(s): Inga Choi MD [STAFF PHYSICIAN] - 03/13/19 Patient Instructions/Handouts: Hiatal Hernia (ED), Gastroesophageal Reflux Disease (DC) Discharge Disposition: HOME SELF-CARE
[2019-03-02 08:39] VITALS: BP 145/84; PULSE 67
== END 2019-03-02 08:43 | disposition home or self-care (01) ==
LOC: ORWHC2ENDO 07:18
PROVIDERS: ATTEND Surgery Plastic and Reconstructive Surgery
DX: K21.0 Gastro-esophageal reflux disease with esophagitis (principal); K44.9 Diaphragmatic hernia without obstruction or gangrene; Z79.01 Long term (current) use of anticoagulants; Z79.82 Long term (current) use of aspirin
CPT/HCPCS: 43235; J2001; J2704

== ENCOUNTER → 2020-02-29 | Outpatient (CLI) | payer OTHER ==
--- NOTE | 2020-02-29 12:37 | XR ---
EXAMINATION TYPE: XR cervical spine comp DATE OF EXAM: 02/29/2020 TECHNIQUE: Frontal, lateral, oblique, and open mouth view of the cervical spine are obtained. HISTORY: W19.XXXA uspecified fall postsurgical change January 21 progress study. Pain. COMPARISON: Cervical spine CT October 13, 2018 FINDINGS: There is new anterior fusion plate from C4 through C7 levels with some partial resection of the border probably and large artificial disc material at these levels. There is slight grade 1 ante rolisthesis of C3 on C4 but stable. Alignment is satisfactory at surgical levels. Suboptimal visualiz ation of C7-T1 articulation without dedicated swimmer's view. C1-C2 articulation satisfactory on the open mouth frontal view. Oblique images show some neural foraminal narrowing due to marginal spurring bilaterally greater on the left side mid cervical levels. Overlying soft tissue is unremarkable. IMPRESSION: As above.
== END | disposition home or self-care (01) ==
LOC: RADXRMAIN 12:01
PROVIDERS: ATTEND Family Medicine
DX: M48.02 Spinal stenosis, cervical region (principal); M43.12 Spondylolisthesis, cervical region; Z98.1 Arthrodesis status
CPT/HCPCS: 72050

== ENCOUNTER 2020-04-23 17:20 | Emergency (ER) | payer OTHER ==
[2020-04-23] MEDS ORDERED: SODIUM CHLORIDE 0.9% 1,000 ML IV STA (19:42)
[2020-04-23] MEDS ORDERED: MORPHINE SULFATE 4 MG/ML SYRINGE IV STA (19:42)
[2020-04-23] MEDS ORDERED: KETOROLAC 15 MG/ML 1 ML VIAL IVP STA (19:42)
--- NOTE | 2020-04-23 19:43 | ED ---
Chest Pain HPI - General Chief Complaint: Neck Pain/Injury Stated Complaint: shoulder pain Time Seen by Provider: 04/23/20 18:54 Source: patient, RN notes reviewed Mode of arrival: ambulatory Limitations: no limitations - History of Present Illness MD Complaint: other (neck pain history of neck surgery) -: days(s) Onset: during rest Pain Location: other (neck l shoulder) Pain Radiation: LUE Severity: moderate Severity scale (1-10): 7 Quality: tightness, sharp Consistency: constant Improves With: nothing Worsens With: nothing Context: recent surgery Anginal Symptoms: other (none) Other Symptoms: other (none) Treatments Prior to Arrival: other (none) - Related Data Home Medications Medication Instructions Recorded Confirmed Albuterol Inhaler [Ventolin Hfa 2 puff INHALATION RT-Q4H PRN 04/23/20 04/23/20 Inhaler] Citalopram Hydrobromide [CeleXA] 40 mg PO DAILY 04/23/20 04/23/20 Fluticasone/Salmeterol [Advair 1 puff INHALATION RT-BID PRN 04/23/20 04/23/20 250-50 Diskus] HYDROcodone/APAP 7.5-325MG [[place] 1 tab PO Q4H PRN 04/23/20 04/23/20 7.5-325] Lidocaine 5% Oint [Xylocaine 5% 1 applic TOPICAL DAILY PRN 04/23/20 04/23/20 Oint] Meloxicam [Mobic] 15 mg PO DAILY 04/23/20 04/23/20 Rivaroxaban [Xarelto] 10 mg PO DAILY 04/23/20 04/23/20 methocarbamoL [Robaxin] 750 mg PO TID 04/23/20 04/23/20 rOPINIRole HCL [Requip] 0.5 mg PO HS 04/23/20 04/23/20 Previous Rx's Medication Instructions Recorded Ondansetron Odt [Zofran Odt] 4 mg PO Q8HR PRN #10 tab 01/27/20 Allergies Allergy/AdvReac Type Severity Reaction Status Date / Time gluten Allergy Mild Diarrhea Verified 04/23/20 21:16 topiramate [From Topamax] AdvReac dizziness,d Verified 04/23/20 21:16 isoriented Review of Systems ROS Statement: Those systems with pertinent positive or pertinent negative responses have been documented in the HPI. ROS Other: All systems not noted in ROS Statement are negative. EKG Findings - EKG Comments: EKG Findings:: DVT: EKG shows sinus rhythm 78, AL 136 QRS 68 QTc 469 Past Medical History Past Medical History: Asthma, Cancer, CVA/TIA, Deep Vein Thrombosis (DVT), GERD/Reflux, Hyperlipidemia, Hypertension, Pulmonary Embolus (PE) Additional Past Medical History / Comment(s): 2013 CVA with minimal L sided weakness, still has balance issues, celiac disease is on gluten free diet, UTi, cervical herniated discs-neck pain, hiatal hernia. past migraines, sinus problems, seasonal allergies, some dysphagia problems in October & November, is better now, hx. melanoma 2018 History of Any Multi-Drug Resistant Organisms: None Reported Past Surgical History: Tonsillectomy Additional Past Surgical History / Comment(s): ANJALI in 2013, colonoscopy. Melanoma removed in feb 2018, cervical surgery Past Anesthesia/Blood Transfusion Reactions: Postoperative Nausea & Vomiting (PO NV) Past Psychological History: Depression Smoking Status: Never smoker Past Alcohol Use History: Occasional Past Drug Use History: None Reported - Past Family History Father History Unknown: Yes Additional Family Medical History / Comment(s): Pt does not know mother or father hx- she is adopted. General Exam Limitations: no limitations General appearance: alert, in no apparent distress Head exam: Present: atraumatic, normocephalic, normal inspection Eye exam: Present: normal appearance, PERRL, EOMI. Absent: scleral icterus, conjunctival injection, periorbital swelling ENT exam: Present: normal exam, mucous membranes moist Neck exam: Present: normal inspection. Absent: tenderness, meningismus, lymphadenopathy Respiratory exam: Present: normal lung sounds bilaterally. Absent: respiratory distress, wheezes, rales, rhonchi, stridor Cardiovascular Exam: Present: regular rate, normal rhythm, normal heart sounds. Absent: systolic murmur, diastolic murmur, rubs, gallop, clicks GI/Abdominal exam: Present: soft, normal bowel sounds. Absent: distended, tenderness, guarding, rebound, rigid Extremities exam: Present: normal inspection, full ROM, normal capillary refill. Absent: tenderness, pedal edema, joint swelling, calf tenderness Back exam: Present: normal inspection Neurological exam: Present: alert, oriented X3, CN II-XII intact Psychiatric exam: Present: normal affect, normal mood Skin exam: Present: warm, dry, intact, normal color. Absent: rash Course Vital Signs 04/23/20 04/23/20 04/23/20 17:40 19:42 21:00 Temperature 98.7 F Pulse Rate 90 81 77 Respiratory 18 20 18 Rate Blood Pressure 145/68 150/81 165/88 O2 Sat by Pulse 98 99 99 Oximetry 04/23/20 04/23/20 04/23/20 22:00 22:49 22:55 Temperature 98.3 F Pulse Rate 81 75 Respiratory 18 18 Rate Blood Pressure 183/103 138/95 O2 Sat by Pulse 99 98 Oximetry Disposition Clinical Impression: Cervical radiculopathy, Strain of neck muscle Disposition: HOME SELF-CARE Condition: Good Instructions (If sedation given, give patient instructions): Cervical Strain (ED) Is patient prescribed a controlled substance at d/c from ED?: No Referrals: Jared Serrano DO [Primary Care Provider] - 1-2 days
--- NOTE | 2020-04-23 20:40 | XR ---
EXAMINATION TYPE: XR chest 2V DATE OF EXAM: 04/23/2020 COMPARISON: 08/02/2018 HISTORY: Chest pain TECHNIQUE: FINDINGS: Heart and mediastinum are normal. Lungs are clear. Diaphragm is normal. Bony thorax is inta ct. There is cervical spine fusion surgery. IMPRESSION: No active cardiopulmonary disease. No adverse change.
[2020-04-23 20:57] LABS: Basophils % (A) 0 %; Eosinophils # (A) 0.4 k/uL (0-0.7); Eosinophils % (A) 6 %; HCT 45.5 % (34.0-46.0); HGB 14.7 gm/dL (11.4-16.0); Lymphocytes % (A) 28 %; MCH 31.8 pg (25.0-35.0); MCHC 32.4 g/dL (31.0-37.0); MCV 98.2 fL (80.0-100.0); Mean Platelet Volume 7.9; Monocytes # (A) 0.3 k/uL (0-1.0); Monocytes % (A) 4 %; Neutrophils # (A) 4.4 k/uL (1.3-7.7); Neutrophils % (A) 61 %; Platelet Count 205 k/uL (150-450); RBC 4.63 m/uL (3.80-5.40); RDW 12.7 % (11.5-15.5); WBC 7.3 k/uL (3.8-10.6)
[2020-04-23 21:06] LABS: ALT 22 U/L (4-34); AST 41 U/L (14-36); African American GFR (CKD) >90 (>60 ml/min/1.73 sqM); Albumin 4.4 g/dL (3.5-5.0); Alkaline Phosphatase 87 U/L (38-126); Anion Gap 4 mmol/L; Blood Urea Nitrogen 14 mg/dL (7-17); Calcium 9.3 mg/dL (8.4-10.2); Carbon Dioxide 31 mmol/L (22-30); Chloride 104 mmol/L (98-107); Creatine Kinase 66 U/L (30-135); Glucose 99 mg/dL (74-99); Lipase 33 U/L (23-300); Magnesium 2.2 mg/dL (1.6-2.3); Non-African American GFR(CKD) >90 (>60 ml/min/1.73 sqM); Potassium 4.3 mmol/L (3.5-5.1); Sodium 139 mmol/L (137-145); Total Bilirubin 0.4 mg/dL (0.2-1.3); Total Protein 7.2 g/dL (6.3-8.2)
[2020-04-23] MEDS ORDERED: DEXAMETHASONE SOD PHOSPHATE 10 MG/ML 1 ML VIAL IV STA (21:41)
[2020-04-23] MEDS ORDERED: MORPHINE SULFATE 4 MG/ML SYRINGE IVP STA (21:41)
[2020-04-23 22:13] VITALS: RESP 18
[2020-04-23 22:50] VITALS: BP 138/95; PULSE 75
[2020-04-23 22:56] VITALS: TEMP 98.3
== END 2020-04-23 22:55 | disposition home or self-care (01) ==
LOC: EC 17:20
DX: S16.1XXA Strain of muscle, fascia and tendon at neck level, initial encounter (principal); M54.12 Radiculopathy, cervical region; F32.9 Major depressive disorder, single episode, unspecified; J45.909 Unspecified asthma, uncomplicated; Z79.899 Other long term (current) drug therapy; Z79.01 Long term (current) use of anticoagulants; Z88.8 Allergy status to other drugs, medicaments and biological substances; Z91.018 Allergy to other foods; Z86.711 Personal history of pulmonary embolism; Z85.820 Personal history of malignant melanoma of skin; Z86.718 Personal history of other venous thrombosis and embolism; Z86.73 Personal history of transient ischemic attack (TIA), and cerebral infarction without residual deficits; Z86.69 Personal history of other diseases of the nervous system and sense organs
CPT/HCPCS: 36415; 93005; 83880; 80053; 82550; 83690; 83735; 84484; 85025; 85610; 85730; 71046; 99284; 96374; 96375; 96376; 96361 ×2; J2270; J1100; J1885

== ENCOUNTER 2020-05-05 14:56 | Emergency (ER) | payer OTHER ==
[2020-05-05] MEDS ORDERED: ASPIRIN 81 MG PO STA (16:08)
[2020-05-05] MEDS ORDERED: SODIUM CHLORIDE 0.9% 500 ML 500 ML IV STA (16:08)
[2020-05-05 16:33] LABS: Basophils # (A) 0.1 k/uL (0-0.2); Basophils % (A) 1 %; Eosinophils # (A) 0.2 k/uL (0-0.7); Eosinophils % (A) 3 %; HCT 45.5 % (34.0-46.0); HGB 15.2 gm/dL (11.4-16.0); Lymphocytes # (A) 1.1 k/uL (1.0-4.8); Lymphocytes % (A) 22 %; MCHC 33.3 g/dL (31.0-37.0); Monocytes # (A) 0.3 k/uL (0-1.0); Monocytes % (A) 5 %; Neutrophils # (A) 3.5 k/uL (1.3-7.7); Neutrophils % (A) 67 %; Platelet Count 128 k/uL (150-450); RBC 4.74 m/uL (3.80-5.40); RDW 12.3 % (11.5-15.5); WBC 5.2 k/uL (3.8-10.6)
[2020-05-05 16:43] LABS: INR 1.1 (<1.2); Partial Thromboplastin Time 31.9 sec (22.0-30.0); Prothrombin Time 11.4 sec (9.0-12.0)
[2020-05-05 17:17] LABS: ALT 23 U/L (4-34); AST 32 U/L (14-36); African American GFR (CKD) >90 (>60 ml/min/1.73 sqM); Albumin 4.4 g/dL (3.5-5.0); Alkaline Phosphatase 75 U/L (38-126); Anion Gap 8 mmol/L; Blood Urea Nitrogen 19 mg/dL (7-17); Calcium 9.2 mg/dL (8.4-10.2); Carbon Dioxide 23 mmol/L (22-30); Chloride 105 mmol/L (98-107); Glucose 140 mg/dL (74-99); Non-African American GFR(CKD) 88 (>60 ml/min/1.73 sqM); Potassium 4.3 mmol/L (3.5-5.1); Sodium 136 mmol/L (137-145); Total Bilirubin 0.5 mg/dL (0.2-1.3)
--- NOTE | 2020-05-05 18:02 | CT ---
EXAMINATION TYPE: CT chest angio for PE DATE OF EXAM: 05/05/2020 COMPARISON: None HISTORY: Left sided chest pain. History of blood clots CT DLP: 303.1 mGycm Automated exposure control for dose reduction was used. CONTRAST: Performed with IV Contrast, patient injected with 100 mL of Isovue 370. There are 3-D post processed images. There is minimal subsegmental atelectasis in the posterior right lung field. There is no mediastinal adenopathy. There are no hilar masses. The lungs are clear of consolidation. Thoracic aorta is intact. There is no aneurysm or dissection. The ascending aorta measures 3.2 cm. There is normal contrast opacification of the pulmonary arteries. There are no filling defects. The bony thorax is intact. Sternum is intact. The ribs are intact. IMPRESSION: No evidence of pulmonary embolism. Mild subsegmental atelectasis at the lung bases.
[2020-05-05] MEDS ORDERED: HYDROcodone/APAP 5-325MG 1 EACH TAB PO STA (18:10)
[2020-05-05] MEDS ORDERED: ACET/COD 300 MG/30 MG STARTER PACK 6 TAB BTL PO STA (18:10)
--- NOTE | 2020-05-05 18:14 | ED ---
General Adult HPI - General Chief complaint: Recheck/Abnormal Lab/Rx Stated complaint: Poss Blood Clot Time Seen by Provider: 05/05/20 16:03 Source: patient, RN notes reviewed, old records reviewed Mode of arrival: ambulatory Limitations: no limitations - History of Present Illness Initial comments: 65-year-old female patient past medical history of prior DVT who is anticoagulated on [place] presents to ED for evaluation of left lateral rib pain. Patient reports that she missed her L quest for around 5 days last week. She is currently back on the eliquis. Last Tuesday she has been having some pain in her left lateral rib region which is sharp and slightly pleuritic in nature. She denies having any shortness of breath or any anterior chest pain. She reports that she had a full cardiac workup last year and was all negative. Denies any leg pain she denies any cough congestion or fever. Denies any other acute complaints. Systemic: Pt denies fatigue, fever/chills, rash. Pt denies weakness, night sweats, weight loss. Neuro: Pt denies headache, visual disturbances, syncope or pre-syncope. HEENT: Pt denies ocular discharge or irritation, otalgia, rhinorrhea, pharyngitis or notable lymphadenopathy. Cardiopulmonary: Pt denies SOB, heart palpitations, dyspnea on exertion. Abdominal/GI: Pt denies abdominal pain, n/v/d. : Pt denies dysuria, burning w/ urination, frequency/urgency. Denies new onset urinary or bowel incontinence. MSK: Pt denies myalgia, loss of strength or function in extremities. Neuro: Pt denies new onset weakness, paresthesias. - Related Data Home Medications Medication Instructions Recorded Confirmed Albuterol Inhaler [Ventolin Hfa 2 puff INHALATION RT-Q4H PRN 04/23/20 05/05/20 Inhaler] Citalopram Hydrobromide [CeleXA] 40 mg PO DAILY 04/23/20 05/05/20 Fluticasone/Salmeterol [Advair 1 puff INHALATION RT-BID PRN 04/23/20 05/05/20 250-50 Diskus] HYDROcodone/APAP 7.5-325MG [[place] 1 tab PO Q4H PRN 04/23/20 05/05/20 7.5-325] Lidocaine 5% Oint [Xylocaine 5% 1 applic TOPICAL QID PRN 04/23/20 05/05/20 Oint] Meloxicam [Mobic] 15 mg PO DAILY 04/23/20 05/05/20 Rivaroxaban [Xarelto] 10 mg PO DAILY 04/23/20 05/05/20 methocarbamoL [Robaxin] 750 mg PO TID 04/23/20 05/05/20 rOPINIRole HCL [Requip] 0.5 mg PO HS 04/23/20 05/05/20 Gabapentin 300 mg PO BID 05/05/20 05/05/20 Ondansetron Odt [Zofran Odt] 8 mg PO Q12H PRN 05/05/20 05/05/20 Pantoprazole [Protonix] 40 mg PO DAILY PRN 05/05/20 05/05/20 Allergies Allergy/AdvReac Type Severity Reaction Status Date / Time gluten Allergy Mild Diarrhea Verified 05/05/20 17:56 topiramate [From Topamax] AdvReac dizziness,d Verified 05/05/20 17:56 isoriented Review of Systems ROS Statement: Those systems with pertinent positive or pertinent negative responses have been documented in the HPI. ROS Other: All systems not noted in ROS Statement are negative. 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 past migraines, sinus problems, seasonal allergies, some dysphagia problems in October & November, is better now, hx. melanoma 2018 History of Any Multi-Drug Resistant Organisms: None Reported Past Surgical History: Tonsillectomy Additional Past Surgical History / Comment(s): ANJALI in 2013, colonoscopy. Liseth anoma removed in feb 2018, cervical surgery Past Anesthesia/Blood Transfusion Reactions: Postoperative Nausea & Vomiting (PONV) Past Psychological History: Depression Smoking Status: Never smoker Past Alcohol Use History: Occasional Past Drug Use History: None Reported - Past Family History Father History Unknown: Yes Additional Family Medical History / Comment(s): Pt does not know mother or father hx- she is adopted. General Exam - General Exam Comments Initial Comments: Constitutional: NAD, AOX3, Pt has pleasant affect. HEENT: NC/AT, trachea midline, neck supple, no lymphadenopathy. Posterior pharynx non erythematous, without exudates. External ears appear normal, without discharge. Mucous membranes moist. Eyes PERRLA, EOM intact. There is no scleral icterus. No pallor noted. Cardiopulmonary: RRR, no murmurs, rubs or gallops, no JVD noted. Lungs CTAB in anterior and posterior marks. No peripheral edema. Abdominal exam: Abdomen soft and non-distended. Abdomen non-tender to palpation in all 4 quadrants. Bowel sounds active in LLQ. No hepatosplenomegaly. No ecchymosis Neuro: CN II-XII grossly intact. No nuchal rigidity. No raccon eyes, no franklin sign, no hemotympanum. No cervical spinal tenderness. MSK: No posterior calf tenderness bilaterally, homans sign negative bilaterally. Posterior tibialis and radial pulse +2 bilaterally. Sensation intact in upper and lower extremities. Full active ROM in upper and lower extremities, 5/5 stregnth. No skin changes on chest wall. Limitations: no limitations Course Vital Signs 05/05/20 14:58 Temperature 98.2 F Pulse Rate 88 Respiratory 18 Rate Blood Pressure 154/77 O2 Sat by Pulse 98 Oximetry Medical Decision Making - Medical Decision Making 65-year-old female patient to ED for left lateral rib pain for the last 3 days described as sharp. Patient vital signs are stable, afebrile. Physical exam negative for acute pathology. Laboratory investigations are unremarkable. T roponin is negative. EKG is nonischemic. CTA is negative. I did recommend patient admission to hospital for serial troponins and cardiology evaluation this she is declining. I will test patient for covid which will outpatient follow-up with her primary care provider and strict return precautions. Case discussed with Dr. Aj. - Lab Data Result diagrams: 05/05/20 16:15 05/05/20 16:15 Lab Results 05/05/20 05/05/20 05/05/20 Range/Units 16:15 16:15 16:15 WBC 5.2 (3.8-10.6) k/uL RBC 4.74 (3.80-5.40) m/uL Hgb 15.2 (11.4-16.0) gm/dL Hct 45.5 (34.0-46.0) % MCV 96.0 (80.0-100.0) fL MCH 32.0 (25.0-35.0) pg MCHC 33.3 (31.0-37.0) g/dL RDW 12.3 (11.5-15.5) % Plt Count 128 L (150-450) k/uL MPV 8.0 Neutrophils % 67 % Lymphocytes % 22 % Monocytes % 5 % Eosinophils % 3 % Basophils % 1 % Neutrophils # 3.5 (1.3-7.7) k/uL Lymphocytes # 1.1 (1.0-4.8) k/uL Monocytes # 0.3 (0-1.0) k/uL Eosinophils # 0.2 (0-0.7) k/uL Basophils # 0.1 (0-0.2) k/uL PT 11.4 (9.0-12.0) sec INR 1.1 (<1.2) APTT 31.9 H (22.0-30.0) sec Sodium 136 L (137-145) mmol/L Potassium 4.3 (3.5-5.1) mmol/L Chloride 105 (98-107) mmol/L Carbon Dioxide 23 (22-30) mmol/L Anion Gap 8 mmol/L BUN 19 H (7-17) mg/dL Creatinine 0.73 (0.52-1.04) mg/dL Est GFR (CKD-EPI)AfAm >90 (>60 ml/min/1.73 sqM) Est GFR (CKD-EPI)NonAf 88 (>60 ml/min/1.73 sqM) Glucose 140 H (74-99) mg/dL Calcium 9.2 (8.4-10.2) mg/dL Magnesium 2.0 (1.6-2.3) mg/dL Total Bilirubin 0.5 (0.2-1.3) mg/dL AST 32 (14-36) U/L ALT 23 (4-34) U/L Alkaline Phosphatase 75 (38-126) U/L Troponin I (0.000-0.034) ng/mL NT-Pro-B Natriuret Pep pg/mL Total Protein 7.0 (6.3-8.2) g/dL Albumin 4.4 (3.5-5.0) g/dL 05/05/20 05/05/20 Range/Units 16:15 16:15 WBC (3.8-10.6) k/uL RBC (3.80-5.40) m/uL Hgb (11.4-16.0) gm/dL Hct (34.0-46.0) % MCV (80.0-100.0) fL MCH (25.0-35.0) pg MCHC (31.0-37.0) g/dL RDW (11.5-15.5) % Plt Count (150-450) k/uL MPV Neutrophils % % Lymphocytes % % Monocytes % % Eosinophils % % Basophils % % Neutrophils # (1.3-7.7) k/uL Lymphocytes # (1.0-4.8) k/uL Monocytes # (0-1.0) k/uL Eosinophils # (0-0.7) k/uL Basophils # (0-0.2) k/uL PT (9.0-12.0) sec INR (<1.2) APTT (22.0-30.0) sec Sodium (137-145) mmol/L Potassium (3.5-5.1) mmol/L Chloride (98-107) mmol/L Carbon Dioxide (22-30) mmol/L Anion Gap mmol/L BUN (7-17) mg/dL Creatinine (0.52-1.04) mg/dL Est GFR (CKD-EPI)AfAm (>60 ml/min/1.73 sqM) Est GFR (CKD-EPI)NonAf (>60 ml/min/1.73 sqM) Glucose (74-99) mg/dL Calcium (8.4-10.2) mg/dL Magnesium (1.6-2.3) mg/dL Total Bilirubin (0.2-1.3) mg/dL AST (14-36) U/L ALT (4-34) U/L Alkaline Phosphatase (38-126) U/L Troponin I <0.012 (0.000-0.034) ng/mL NT-Pro-B Natriuret Pep 48 pg/mL Total Protein (6.3-8.2) g/dL Albumin (3.5-5.0) g/dL Disposition Clinical Impression: Atypical chest pain, Rib pain on left side Disposition: HOME SELF-CARE Condition: Stable Instructions (If sedation given, give patient instructions): Chest Wall Pain (ED) Additional Instructions: Follow up with PCP tomorrow. Return to ED with any worsening symptoms. Is patient prescribed a controlled substance at d/c from ED?: No Referrals: Jared Serrano DO [Primary Care Provider] - 1-2 days
[2020-05-05 18:35] VITALS: BP 147/82; PULSE 73; RESP 16; TEMP 97.9
== END 2020-05-05 18:30 | disposition home or self-care (01) ==
LOC: EC 14:56
DX: R07.89 Other chest pain (principal); R07.81 Pleurodynia; Z20.828 Contact with and (suspected) exposure to other viral communicable diseases; J45.909 Unspecified asthma, uncomplicated; I10 Essential (primary) hypertension; E78.5 Hyperlipidemia, unspecified; F32.9 Major depressive disorder, single episode, unspecified; K21.9 Gastro-esophageal reflux disease without esophagitis; Z79.1 Long term (current) use of non-steroidal anti-inflammatories (NSAID); Z79.899 Other long term (current) drug therapy; Z88.8 Allergy status to other drugs, medicaments and biological substances; Z91.048 Other nonmedicinal substance allergy status; Z86.73 Personal history of transient ischemic attack (TIA), and cerebral infarction without residual deficits; Z86.718 Personal history of other venous thrombosis and embolism; Z86.711 Personal history of pulmonary embolism; Z85.820 Personal history of malignant melanoma of skin
CPT/HCPCS: 36415; 93005; 83880; 80053; 83735; 84484; 85025; 85610; 85730; 71275; 99284; 96360; U0003; Q9967

== ENCOUNTER 2020-07-06 11:29 | Emergency (ER) | payer OTHER ==
[2020-07-06 11:41] VITALS: TEMP 98.3
[2020-07-06] MEDS ORDERED: ONDANSETRON 4 MG/2 ML VIAL IVP STA (11:45)
[2020-07-06] MEDS ORDERED: HYDROmorphone 0.5 MG/0.5 ML SYRINGE IVP STA ×2 (11:45→13:29)
--- NOTE | 2020-07-06 11:49 | ED ---
General Adult HPI - General Chief complaint: Back Pain/Injury Stated complaint: Back pain/nausea/head ache Time Seen by Provider: 07/06/20 11:35 Source: patient, RN notes reviewed, old records reviewed Mode of arrival: ambulatory Limitations: no limitations - History of Present Illness Initial comments: This is a 65-year-old female presents emergency department with past medical history significant for pulmonary embolism and she is on Xarelto. Patient comes in complaining of left lower back pain. Patient states his been ongoing for a couple of days. Patient states movement does not seem to make it worse and palpation does not seem to make it worse. Patient states the pain was a 9 out of 10 lasting made it very difficult for her to even get any sleep. Patient denies any injury. Patient denies any heavy lifting. Patient denies any abdominal pain patient states she was mildly nauseous earlier but she denies any vomiting she denies diarrhea. Patient denies any recent fever chills or cough. - Related Data Home Medications Medication Instructions Recorded Confirmed Albuterol Inhaler [Ventolin Hfa 2 puff INHALATION RT-Q4H PRN 04/23/20 05/05/20 Inhaler] Citalopram Hydrobromide [CeleXA] 40 mg PO DAILY 04/23/20 05/05/20 Fluticasone/Salmeterol [Advair 1 puff INHALATION RT-BID PRN 04/23/20 05/05/20 250-50 Diskus] HYDROcodone/APAP 7.5-325MG [[place] 1 tab PO Q4H PRN 04/23/20 05/05/20 7.5-325] Lidocaine 5% Oint [Xylocaine 5% 1 applic TOPICAL QID PRN 04/23/20 05/05/20 Oint] Meloxicam [Mobic] 15 mg PO DAILY 04/23/20 05/05/20 Rivaroxaban [Xarelto] 10 mg PO DAILY 04/23/20 05/05/20 methocarbamoL [Robaxin] 750 mg PO TID 04/23/20 05/05/20 rOPINIRole HCL [Requip] 0.5 mg PO HS 04/23/20 05/05/20 Gabapentin 300 mg PO BID 05/05/20 05/05/20 Ondansetron Odt [Zofran Odt] 8 mg PO Q12H PRN 05/05/20 05/05/20 Pantoprazole [Protonix] 40 mg PO DAILY PRN 05/05/20 05/05/20 Allergies Allergy/AdvReac Type Severity Reaction Status Date / Time gluten Allergy Mild Diarrhea Verified 07/06/20 11:44 topiramate [From Topamax] AdvReac dizziness,d Verified 07/06/20 11:44 isoriented Review of Systems ROS Statement: Those systems with pertinent positive or pertinent negative responses have been documented in the HPI. ROS Other: All systems not noted in ROS Statement are negative. 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 past migraines, sinus problems, seasonal allergies, some dysphagia problems in October & November, is better now, hx. melanoma 2017 History of Any Multi-Drug Resistant Organisms: None Reported Past Surgical History: Tonsillectomy Additional Past Surgical History / Comment(s): ANJALI in 2013, colonoscopy. Melanoma removed in feb 2018, cervical surgery Past Anesthesia/Blood Transfusion Reactions: Postoperative Nausea & Vomiting (PONV) Past Psychological History: Depression Smoking Status: Never smoker Past Alcohol Use History: Occasional Past Drug Use History: None Reported - Past Family History Father History Unknown: Yes Additional Family Medical History / Comment(s): Pt does not know mother or father hx- she is adopted. General Exam - General Exam Comments Initial Comments: GENERAL: Patient is well-developed and well-nourished. Patient is nontoxic and well- hydrated and is in Mild distress. ENT: Neck is soft and supple. No significant lymphadenopathy is noted. Oropharynx is clear. Moist mucous membranes. Neck has full range of motion without eliciting any pain. EYES: The sclera were anicteric and conjunctiva were pink and moist. Extraocular movements were intact and pupils were equal round and reactive to light. Eyelids were unremarkable. PULMONARY: Unlabored respirations. Good breath sounds bilaterally. No audible rales rhonchi or wheezing was noted. CARDIOVASCULAR: There is a regular rate and rhythm without any murmurs gallops or rubs. ABDOMEN: Soft and nontender with normal bowel sounds. SKIN: Skin is clear with no lesions or rashes and otherwise unremarkable. NEUROLOGIC: Patient is alert and oriented x3. Cranial nerves II through XII are grossly intact. Motor and sensory are also intact. Normal speech, volume and content. Symmetrical smile. MUSCULOSKELETAL: Normal extremities with adequate strength and full range of motion. No lower extremity swelling or edema. No calf tenderness. LYMPHATICS: No significant lymphadenopathy is noted PSYCHIATRIC: Normal psychiatric evaluation. Limitations: no limitations Course Vital Signs 07/06/20 07/06/20 07/06/20 11:37 12:55 13:28 Temperature 98.3 F Pulse Rate 81 70 69 Respiratory 16 18 16 Rate Blood Pressure 189/99 154/75 O2 Sat by Pulse 97 99 98 Oximetry Medical Decision Making - Medical Decision Making Patient's CT showed no acute abnormality to explain the patient's pain. Patient received Toradol and Dilaudid emergency department felt much better. Patient will follow-up the primary medical care doctor tomorrow. - Lab Data Result diagrams: 07/06/20 11:50 07/06/20 11:50 Lab Results 07/06/20 07/06/20 07/06/20 Range/Units 11:50 11:50 11:50 WBC 5.9 (3.8-10.6) k/uL RBC 4.70 (3.80-5.40) m/uL Hgb 15.2 (11.4-16.0) gm/dL Hct 45.4 (34.0-46.0) % MCV 96.7 (80.0-100.0) fL MCH 32.4 (25.0-35.0) pg MCHC 33.6 (31.0-37.0) g/dL RDW 12.5 (11.5-15.5) % Plt Count 175 (150-450) k/uL MPV 7.8 Neutrophils % 65 % Lymphocytes % 24 % Monocytes % 5 % Eosinophils % 4 % Basophils % 1 % Neutrophils # 3.8 (1.3-7.7) k/uL Lymphocytes # 1.4 (1.0-4.8) k/uL Monocytes # 0.3 (0-1.0) k/uL Eosinophils # 0.3 (0-0.7) k/uL Basophils # 0.0 (0-0.2) k/uL Sodium 138 (137-145) mmol/L Potassium 3.9 (3.5-5.1) mmol/L Chloride 106 (98-107) mmol/L Carbon Dioxide 20 L (22-30) mmol/L Anion Gap 12 mmol/L BUN 16 (7-17) mg/dL Creatinine 0.71 (0.52-1.04) mg/dL Est GFR (CKD-EPI)AfAm >90 (>60 ml/min/1.73 sqM) Est GFR (CKD-EPI)NonAf >90 (>60 ml/min/1.73 sqM) Glucose 163 H (74-99) mg/dL Calcium 9.2 (8.4-10.2) mg/dL Total Bilirubin 0.6 (0.2-1.3) mg/dL AST 26 (14-36) U/L ALT 18 (4-34) U/L Alkaline Phosphatase 59 (38-126) U/L Total Protein 7.0 (6.3-8.2) g/dL Albumin 4.5 (3.5-5.0) g/dL Urine Color Yellow Urine Appearance Cloudy H (Clear) Urine pH 5.5 (5.0-8.0) Ur Specific [place] 1.030 (1.001-1.035) Urine Protein Trace H (Negative) Urine Glucose (UA) Negative (Negative) Urine Ketones Negative (Negative) Urine Blood Small H (Negative) Urine Nitrite Negative (Negative) Urine Bilirubin Negative (Negative) Urine Urobilinogen <2.0 (<2.0) mg/dL Ur Leukocyte Esterase Small H (Negative) Urine RBC 17 H (0-5) /hpf Urine WBC 1 (0-5) /hpf Ur Squamous Epith Cells 3 (0-4) /hpf Urine Mucus Few H (None) /hpf Disposition Clinical Impression: Back pain, Hematuria Disposition: HOME SELF-CARE Instructions (If sedation given, give patient instructions): Acute Low Back Pain (ED) Is patient prescribed a controlled substance at d/c from ED?: No Referrals: Jared Serrano DO [Primary Care Provider] - 1-2 days Beau Robbins MD [STAFF PHYSICIAN] - 1-2 days Time of Disposition: 13:30
[2020-07-06 12:00] LABS: Basophils % (A) 1 %; Eosinophils # (A) 0.3 k/uL (0-0.7); Eosinophils % (A) 4 %; HCT 45.4 % (34.0-46.0); HGB 15.2 gm/dL (11.4-16.0); Lymphocytes # (A) 1.4 k/uL (1.0-4.8); Lymphocytes % (A) 24 %; MCH 32.4 pg (25.0-35.0); MCHC 33.6 g/dL (31.0-37.0); MCV 96.7 fL (80.0-100.0); Mean Platelet Volume 7.8; Monocytes # (A) 0.3 k/uL (0-1.0); Monocytes % (A) 5 %; Neutrophils # (A) 3.8 k/uL (1.3-7.7); Neutrophils % (A) 65 %; Platelet Count 175 k/uL (150-450); RDW 12.5 % (11.5-15.5); WBC 5.9 k/uL (3.8-10.6)
[2020-07-06 12:02] LABS: Appearance,Urine Cloudy (Clear); Bilirubin,Urine Negative (Negative); Blood,Urine Small (Negative); Color,Urine Yellow; Glucose,Urine (UA) Negative (Negative); Ketones,Urine Negative (Negative); Leukocyte Esterase,Urine Small (Negative); Mucus,Urine Few /hpf; Nitrite,Urine Negative (Negative); PH, Urine 5.5 (5.0-8.0); Protein,Urine Trace (Negative); RBC,Urine 17 /hpf (0-5); Squamous Epithelial Cell,Urine 3 /hpf (0-4); Urobilinogen,Urine <2.0 mg/dL (<2.0); WBC,Urine 1 /hpf (0-5)
[2020-07-06 12:14] LABS: ALT 18 U/L (4-34); AST 26 U/L (14-36); African American GFR (CKD) >90 (>60 ml/min/1.73 sqM); Albumin 4.5 g/dL (3.5-5.0); Alkaline Phosphatase 59 U/L (38-126); Anion Gap 12 mmol/L; Blood Urea Nitrogen 16 mg/dL (7-17); Calcium 9.2 mg/dL (8.4-10.2); Carbon Dioxide 20 mmol/L (22-30); Chloride 106 mmol/L (98-107); Glucose 163 mg/dL (74-99); Non-African American GFR(CKD) >90 (>60 ml/min/1.73 sqM); Potassium 3.9 mmol/L (3.5-5.1); Sodium 138 mmol/L (137-145); Total Bilirubin 0.6 mg/dL (0.2-1.3)
--- NOTE | 2020-07-06 12:54 | CT ---
EXAMINATION TYPE: CT abdomen pelvis wo con DATE OF EXAM: 07/06/2020 COMPARISON: None HISTORY: Abd pain CT DLP: 642.5 mGycm Examination of the solid and hollow viscera is limited given the lack of contrast. FINDINGS: LUNG BASES: No evidence for nodule. No evidence for infiltrate. LIVER/GB: The gallbladder is unremarkable. No space-occupying hepatic lesion. PANCREAS: No pancreatic mass identified. No inflammatory process seen. SPLEEN: No evidence for splenomegaly. No intrasplenic lesions seen. ADRENALS: No adrenal nodules identified. No evidence for thickening. KIDNEYS: No evidence for renal mass. 4 mm nonobstructing calculus mid pole right kidney. No additiona l calculi seen. No hydronephrosis. BOWEL: Appendix has a normal appearance. No evidence of bowel obstruction. No inflammatory process. Lymph nodes: No evidence for adenopathy greater than 1 cm. Abdominal aorta: Atheromatous changes seen. No evidence for aneurysm. Genital organs: No significant abnormality. Other: No significant abnormality. IMPRESSION: 1. NONOBSTRUCTING 4 MM RIGHT RENAL CALCULUS. OTHERWISE UNREMARKABLE STUDY.
[2020-07-06] MEDS ORDERED: KETOROLAC 15 MG/ML 1 ML VIAL IVP STA (13:08)
[2020-07-06 13:29] VITALS: PULSE 69; RESP 16
[2020-07-06] MEDS ORDERED: ACET/COD 300 MG/30 MG STARTER PACK 6 TAB BTL PO STA (13:31)
[2020-07-06 13:34] VITALS: BP 169/83
== END 2020-07-06 13:33 | disposition home or self-care (01) ==
LOC: EC 11:29
DX: M54.5 Low back pain (principal); R31.9 Hematuria, unspecified; R11.0 Nausea; F32.9 Major depressive disorder, single episode, unspecified; J45.909 Unspecified asthma, uncomplicated; I10 Essential (primary) hypertension; K21.9 Gastro-esophageal reflux disease without esophagitis; Z79.01 Long term (current) use of anticoagulants; Z79.1 Long term (current) use of non-steroidal anti-inflammatories (NSAID); Z79.899 Other long term (current) drug therapy; Z88.8 Allergy status to other drugs, medicaments and biological substances; Z91.018 Allergy to other foods; Z86.718 Personal history of other venous thrombosis and embolism; Z86.73 Personal history of transient ischemic attack (TIA), and cerebral infarction without residual deficits; Z86.69 Personal history of other diseases of the nervous system and sense organs; Z86.711 Personal history of pulmonary embolism; Z85.820 Personal history of malignant melanoma of skin
CPT/HCPCS: 36415; 80053; 85025; 81001; 74176; 99284; 96374; 96375 ×2; 96376; J2405; J1885; J1170

== ENCOUNTER 2020-08-09 09:59 | Observation (INO) | payer OTHER ==
[2020-08-09 10:10] VITALS: TEMP 98.4
[2020-08-09] MEDS ORDERED: SODIUM CHLORIDE 0.9% 1,000 ML IV STA (10:23)
[2020-08-09] MEDS ORDERED: ONDANSETRON 4 MG/2 ML VIAL IVP STA (10:23)
[2020-08-09] MEDS ORDERED: MECLIZINE 12.5 MG TAB PO STA (10:24)
[2020-08-09 10:40] LABS: Basophils % (A) 1 %; Eosinophils # (A) 0.4 k/uL (0-0.7); Eosinophils % (A) 7 %; HCT 46.7 % (34.0-46.0); HGB 15.3 gm/dL (11.4-16.0); Lymphocytes # (A) 1.8 k/uL (1.0-4.8); Lymphocytes % (A) 31 %; MCH 31.9 pg (25.0-35.0); MCHC 32.7 g/dL (31.0-37.0); MCV 97.6 fL (80.0-100.0); Mean Platelet Volume 7.8; Monocytes # (A) 0.3 k/uL (0-1.0); Monocytes % (A) 6 %; Neutrophils # (A) 3.2 k/uL (1.3-7.7); Neutrophils % (A) 55 %; Platelet Count 187 k/uL (150-450); RBC 4.79 m/uL (3.80-5.40); WBC 5.8 k/uL (3.8-10.6)
[2020-08-09 10:46] LABS: Partial Thromboplastin Time 27.8 sec (22.0-30.0); Prothrombin Time 11.1 sec (9.0-12.0)
--- NOTE | 2020-08-09 10:52 | XR ---
EXAMINATION TYPE: XR chest 2V DATE OF EXAM: 08/09/2020 COMPARISON: 04/23/2020 HISTORY: Altered mental status. TECHNIQUE: Frontal and lateral views of the chest are obtained. FINDINGS: The lungs are clear consolidative, interstitial masslike opacity. There is no pleural effusion, pleural thickening thorax. The heart, pulmonary vasculature, mediastinum and hilum appear normal. There is metallic fusion in lower cervical spine otherwise the osseous structures and soft tissues ar e unremarkable. IMPRESSION: No acute cardiopulmonary disease..
[2020-08-09 10:56] LABS: Albumin 4.3 g/dL (3.5-5.0); Calcium 9.5 mg/dL (8.4-10.2); Potassium 4.4 mmol/L (3.5-5.1); Total Bilirubin 0.6 mg/dL (0.2-1.3); Total Protein 6.8 g/dL (6.3-8.2)
[2020-08-09 11:14] VITALS: RESP 20
[2020-08-09 11:25] LABS: Appearance,Urine Clear (Clear); Bilirubin,Urine Negative (Negative); Blood,Urine Negative (Negative); Color,Urine Light Yellow; Glucose,Urine (UA) Negative (Negative); Ketones,Urine Negative (Negative); Leukocyte Esterase,Urine Negative (Negative); Nitrite,Urine Negative (Negative); Protein,Urine Negative (Negative); Urobilinogen,Urine <2.0 mg/dL (<2.0)
--- NOTE | 2020-08-09 11:31 | CT ---
EXAMINATION TYPE: CT brain wo con DATE OF EXAM: 08/09/2020 COMPARISON: 01/27/2020 HISTORY: dizziness, history of CVA CT DLP: 1053 mGycm Automated exposure control for dose reduction was used. FINDINGS: The ventricles, basal cisterns and sulci over the convexities are within normal limits for the patien t's age. There are a few tiny remote lacunar infarcts in the right basal ganglia which were seen previously an d are stable. There is no mass, mass effect or shift of the midline structures. There is no acute intra or extra-axial hemorrhage. Grossly the posterior fossa including the brainstem, fourth ventricle and cerebellar pontine angles a ppear normal. The intraorbital contents appear normal and symmetric. Visualized paranasal sinuses and mastoid air c ells are well aerated. IMPRESSION: 1. No acute bleed or mass effect. 2. Tiny remote infarcts right basal ganglia which are stable compared to the prior study.
--- NOTE | 2020-08-09 11:38 | CT ---
EXAMINATION TYPE: CT angio head neck DATE OF EXAM: 08/09/2020 HISTORY: dizziness, history of CVA COMPARISON: None CT DLP: 498.4 mGycm. Automated Exposure Control for Dose Reduction was Utilized. TECHNIQUE: CTA scan of the neck is performed with IV Contrast, patient injected with 65 mL of Isovue 370, axial images are obtained, coronal and sagittal reformatted images are reviewed. Three-D recons tructed images are created on an independent workstation and reviewed. FINDINGS: The brachiocephalic origins are widely patent without significant stenosis. The common and internal c arotid arteries within the neck are patent without significant stenosis. There are eccentric calcifie d plaques within the carotid bifurcations. Intracranially there is no significant stenosis, aneurysm or vascular malformation. IMPRESSION: Mild to moderate eccentric calcifications in the carotid bifurcations within the neck without signifi cant stenosis. No significant abnormality of the intracranial circulation.
--- NOTE | 2020-08-09 12:01 | ED ---
General Adult HPI - General Chief complaint: Dizziness Stated complaint: Dizziness - history of strokes Time Seen by Provider: 08/09/20 10:12 Source: patient Mode of arrival: ambulatory Limitations: no limitations - History of Present Illness Initial comments: 64-year-old female patient with past medical history of CVA in 2013 presents to the emergency department today for evaluation of dizziness. Patient states she woke with extreme dizziness. States whenever she stands up or sits up the room is spinning around her. She does have a headache with this. Denies any blurred or double vision. States she was having some mild tingling to the left hand but this is not unusual due to history of neck issues. Denies any vomiting but states she has been nauseated. Denies weakness to her extremities. States her previous CVA presented like this and then worsened. Denies any chest pain or shortness of breath. Patient denies any recent rash, fever, chills, cough, abdominal pain, nausea, vomiting, diarrhea, constipation, back pain, hematuria, dysuria, urinary urgency, urinary frequency, or any other complaints. - Related Data Home Medications Medication Instructions Recorded Confirmed Albuterol Inhaler [Ventolin Hfa 2 puff INHALATION RT-Q4H PRN 04/23/20 08/09/20 Inhaler] Citalopram Hydrobromide [CeleXA] 40 mg PO DAILY 04/23/20 08/09/20 HYDROcodone/APAP 7.5-325MG [[place] 1 tab PO Q6H PRN 04/23/20 08/09/20 7.5-325] Meloxicam [Mobic] 15 mg PO DAILY 04/23/20 08/09/20 Rivaroxaban [Xarelto] 10 mg PO DAILY 04/23/20 08/09/20 methocarbamoL [Robaxin] 750 mg PO TID PRN 04/23/20 08/09/20 rOPINIRole HCL [Requip] 0.5 mg PO HS PRN 04/23/20 08/09/20 Gabapentin 300 mg PO BID 05/05/20 08/09/20 Allergies Allergy/AdvReac Type Severity Reaction Status Date / Time gluten Allergy Mild Diarrhea Verified 08/09/20 11:13 topiramate [From Topamax] AdvReac dizziness,d Verified 08/09/20 11:13 isoriented Review of Systems ROS Statement: Those systems with pertinent positive or pertinent negative responses have been documented in the HPI. ROS Other: All systems not noted in ROS Statement are negative. 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 past migraines, sinus problems, seasonal allergies, some dysphagia problems in October & November, is better now, hx. melanoma 2018 History of Any Multi-Drug Resistant Organisms: None Reported Past Surgical History: Tonsillectomy Additional Past Surgical History / Comment(s): ANJALI in 2013, colonoscopy. Melanoma removed in feb 2018, cervical surgery Past Anesthesia/Blood Transfusion Reactions: Postoperative Nausea & Vomiting (PONV) Past Psychological History: Depression Smoking Status: Never smoker Past Alcohol Use History: Occasional Past Drug Use History: None Reported - Past Family History Father History Unknown: Yes Additional Family Medical History / Comment(s): Pt does not know mother or father hx- she is adopted. General Exam Limitations: no limitations General appearance: alert, in no apparent distress, other (This is a well- developed, well-nourished adult female patient in no acute distress. Vital signs upon presentation are temperature 98.4F, pulse 81, respirations 18, blood pressure 135/82, pulse ox 100% on room air.) Eye exam: Present: normal appearance, PERRL, EOMI. Absent: scleral icterus, conjunctival injection, nystagmus, periorbital swelling Respiratory exam: Present: normal lung sounds bilaterally. Absent: respiratory distress, wheezes, rales, rhonchi, stridor Cardiovascular Exam: Present: regular rate, normal rhythm, normal heart sounds. Absent: systolic murmur, diastolic murmur, rubs, gallop, clicks GI/Abdominal exam: Present: soft, normal bowel sounds. Absent: distended, tenderness, guarding, rebound, rigid Neurological exam: Present: alert, oriented X3, CN II-XII intact, other (NIH 0) Expanded Speech: Present: fluid speech Cranial nerves: EOM's Intact: Normal, Tongue Deviation: Normal, Nystagmus: Normal Motor strength exam: RUE: 5, LUE: 5, RLE: 5, LLE: 5 Course Vital Signs 08/09/20 08/09/20 10:03 11:12 Temperature 98.4 F Pulse Rate 81 70 Respiratory 18 20 Rate Blood Pressure 135/82 182/78 O2 Sat by Pulse 100 99 Oximetry EKG Findings - EKG Comments: EKG Findings:: EKG obtained at 1019 shows normal sinus rhythm with a ventricular rate of 79, TN interval 132, QRS duration 66, QT 408, QTC 467. No evidence of ST elevation or depression. Medical Decision Making - Medical Decision Making 65-year-old female patient presents to the emergency department today for evaluation of dizziness. Patient had CVA in 2013 with similar presenting symptoms. Physical examination was unremarkable. She is neurologically intact with no focal deficits. NIH score was 0. Labs reviewed and are unremarkable. CT brain of, CT angiography head and neck, chest x-ray were all negative. Upon reevaluation patient is resting comfortably in bed. States she is feeling somewhat better. Still having some dizziness especially with standing. We will admit to the hospital for further evaluation by neurology. Case discussed with my attending Dr. Iverson. - Lab Data Result diagrams: 08/09/20 10:28 08/09/20 10:28 Lab Results 08/09/20 08/09/20 08/09/20 Range/Units 10:28 10:28 10:28 WBC 5.8 (3.8-10.6) k/uL RBC 4.79 (3.80-5.40) m/uL Hgb 15.3 (11.4-16.0) gm/dL Hct 46.7 H (34.0-46.0) % MCV 97.6 (80.0-100.0) fL MCH 31.9 (25.0-35.0) pg MCHC 32.7 (31.0-37.0) g/dL RDW 13.0 (11.5-15.5) % Plt Count 187 (150-450) k/uL MPV 7.8 Neutrophils % 55 % Lymphocytes % 31 % Monocytes % 6 % Eosinophils % 7 % Basophils % 1 % Neutrophils # 3.2 (1.3-7.7) k/uL Lymphocytes # 1.8 (1.0-4.8) k/uL Monocytes # 0.3 (0-1.0) k/uL Eosinophils # 0.4 (0-0.7) k/uL Basophils # 0.0 (0-0.2) k/uL PT 11.1 (9.0-12.0) sec INR 1.0 (<1.2) APTT 27.8 (22.0-30.0) sec Sodium 141 (137-145) mmol/L Potassium 4.4 (3.5-5.1) mmol/L Chloride 105 (98-107) mmol/L Carbon Dioxide 27 (22-30) mmol/L Anion Gap 9 mmol/L BUN 17 (7-17) mg/dL Creatinine 0.82 (0.52-1.04) mg/dL Est GFR (CKD-EPI)AfAm 88 (>60 ml/min/1.73 sqM) Est GFR (CKD-EPI)NonAf 77 (>60 ml/min/1.73 sqM) Glucose 105 H (74-99) mg/dL Calcium 9.5 (8.4-10.2) mg/dL Total Bilirubin 0.6 (0.2-1.3) mg/dL AST 28 (14-36) U/L ALT 16 (4-34) U/L Alkaline Phosphatase 62 (38-126) U/L Troponin I (0.000-0.034) ng/mL Total Protein 6.8 (6.3-8.2) g/dL Albumin 4.3 (3.5-5.0) g/dL Urine Color Urine Appearance (Clear) Urine pH (5.0-8.0) Ur Specific [place] (1.001-1.035) Urine Protein (Negative) Urine Glucose (UA) (Negative) Urine Ketones (Negative) Urine Blood (Negative) Urine Nitrite (Negative) Urine Bilirubin (Negative) Urine Urobilinogen (<2.0) mg/dL Ur Leukocyte Esterase (Negative) 08/09/20 08/09/20 Range/Units 10:28 11:05 WBC (3.8-10.6) k/uL RBC (3.80-5.40) m/uL Hgb (11.4-16.0) gm/dL Hct (34.0-46.0) % MCV (80.0-100.0) fL MCH (25.0-35.0) pg MCHC (31.0-37.0) g/dL RDW (11.5-15.5) % Plt Count (150-450) k/uL MPV Neutrophils % % Lymphocytes % % Monocytes % % Eosinophils % % Basophils % % Neutrophils # (1.3-7.7) k/uL Lymphocytes # (1.0-4.8) k/uL Monocytes # (0-1.0) k/uL Eosinophils # (0-0.7) k/uL Basophils # (0-0.2) k/uL PT (9.0-12.0) sec INR (<1.2) APTT (22.0-30.0) sec Sodium (137-145) mmol/L Potassium (3.5-5.1) mmol/L Chloride (98-107) mmol/L Carbon Dioxide (22-30) mmol/L Anion Gap mmol/L BUN (7-17) mg/dL Creatinine (0.52-1.04) mg/dL Est GFR (CKD-EPI)AfAm (>60 ml/min/1.73 sqM) Est GFR (CKD-EPI)NonAf (>60 ml/min/1.73 sqM) Glucose (74-99) mg/dL Calcium (8.4-10.2) mg/dL Total Bilirubin (0.2-1.3) mg/dL AST (14-36) U/L ALT (4-34) U/L Alkaline Phosphatase (38-126) U/L Troponin I <0.012 (0.000-0.034) ng/mL Total Protein (6.3-8.2) g/dL Albumin (3.5-5.0) g/dL Urine Color Light Yellow Urine Appearance Clear (Clear) Urine pH 7.0 (5.0-8.0) Ur Specific [place] 1.020 (1.001-1.035) Urine Protein Negative (Negative) Urine Glucose (UA) Negative (Negative) Urine Ketones Negative (Negative) Urine Blood Negative (Negative) Urine Nitrite Negative (Negative) Urine Bilirubin Negative (Negative) Urine Urobilinogen <2.0 (<2.0) mg/dL Ur Leukocyte Esterase Negative (Negative) - Radiology Data Radiology results: report reviewed, image reviewed Two-view x-ray of the chest is obtained. Report reviewed in its entirety. Impression by Dr. Youssef shows no acute cardiopulmonary disease. CT brain without contrast was obtained. Report was reviewed in its entirety. Impression by Dr. Youssef shows no acute bleed or mass effect. Tiny remote infarcts right basal ganglia which are stable compared to the prior study. Angiography CT of the head and neck was obtained. Report was reviewed in its entirety. Impression by Dr. Youssef shows mild to moderate eccentric calcifications in the carotid bifurcations within the neck without significant stenosis. No significant abnormality of the intracranial circulation. Disposition Clinical Impression: Dizziness, CVA (cerebral vascular accident) Disposition: ADMITTED IP TO THIS [facility] Condition: Serious Referrals: Jared Serrano DO [Primary Care Provider] - 1-2 days Decision to Admit Reason: Admit from EC Decision Date: 08/09/20 Decision Time: 12:39
[2020-08-09] MEDS ORDERED: ALBUTEROL NEBULIZED 2.5 MG/3 ML INHALATION PRN (15:10)
[2020-08-09] MEDS ORDERED: methocarbamoL 750 MG TAB PO PRN (15:10)
[2020-08-09] MEDS ORDERED: HYDROcodone/APAP 7.5-325MG 1 EACH TAB PO PRN (15:10)
[2020-08-09 15:29] VITALS: BP 129/65; PULSE 74
--- NOTE | 2020-08-09 18:16 | P.CNNES ---
History of Present Illness Consult date: 08/09/20 Reason for Consult: dizziness, TIA vs CVA History of Present Illness: The patient is a 65-year-old right-handed, female who is seen in neurologic consultation on August 09, 2020 via teleneurology. The patient is seen in the emergency department. She presents to the emergency department with complaints of a a spinning sensation. She says when she rolled over in bed this morning, the room began to spin around her. She repositioned herself on the bed and laid there for a little while, waiting for the symptoms to resolve. When she rolled over again the spinning started again. She attempted to get out of bed. Upon arising, the spinning sensation worsened. She said she was concerned about her ability to walk. She said she had to let the dog out. She held onto furniture while walking. The patient feels her symptoms are worse when going from lying down to sitting and from sitting to standing. The patient denies associated changes in vision, difficulty with speech and swallowing, tinnitus, hearing loss, weakness, vomiting. She did did begin to experience nausea, and route to the hospital. She also noted a tingling sensation in her left arm, earlier today. In the emergency department, the patient reports marked increase in her symptoms are vertigo, when she was attempting to stand to get onto the CT scan table. Blood pressure upon presentation to the emergency department was 182/78. The patient reports one other episode of vertigo similar to this, it was associated with her stroke which occurred in 2013. Patient reports subsequent left-sided symptoms, related to that stroke. The patient has received 50 mg of meclizine and also a dose of Zofran. Her symptoms have are currently improved. She does report continued mild "dizziness" and headache. The patient denies recent illness, specifically upper respiratory infection and flu. Review of Systems Eyes: denies blurred vision, denies diplopia Ears: deny: decreased hearing, tinnitus Past Medical History Past Medical History: Asthma, Cancer, CVA/TIA, Deep Vein Thrombosis (DVT), GERD/Reflux, Hyperlipidemia, Hypertension, Pulmonary Embolus (PE) Additional Past Medical History / Comment(s): 2013 CVA with minimal L sided w eakness, still has balance issues, celiac disease is on gluten free diet, UTi, cervical herniated discs-neck pain, hiatal hernia. past migraines, sinus problems, seasonal allergies, some dysphagia problems in October & November, is better now, hx. melanoma 2018 History of Any Multi-Drug Resistant Organisms: None Reported Past Surgical History: Tonsillectomy Additional Past Surgical History / Comment(s): ANJALI in 2013, colonoscopy. Melanoma removed in feb 2018, cervical surgery Past Anesthesia/Blood Transfusion Reactions: Postoperative Nausea & Vomiting (PONV) Past Psychological History: Depression Smoking Status: Never smoker Past Alcohol Use History: Occasional Past Drug Use History: None Reported - Past Family History Father History Unknown: Yes Additional Family Medical History / Comment(s): Pt does not know mother or father hx- she is adopted. Medications and Allergies Home Medications Medication Instructions Recorded Confirmed Type Albuterol Inhaler [Ventolin Hfa 2 puff INHALATION RT-Q4H PRN 04/23/20 08/09/20 History Inhaler] Citalopram Hydrobromide [CeleXA] 40 mg PO DAILY 04/23/20 08/09/20 History HYDROcodone/APAP 7.5-325MG [[place] 1 tab PO Q6H PRN 04/23/20 08/09/20 History 7.5-325] Meloxicam [Mobic] 15 mg PO DAILY 04/23/20 08/09/20 History Rivaroxaban [Xarelto] 10 mg PO DAILY 04/23/20 08/09/20 History methocarbamoL [Robaxin] 750 mg PO TID PRN 04/23/20 08/09/20 History rOPINIRole HCL [Requip] 0.5 mg PO HS PRN 04/23/20 08/09/20 History Gabapentin 300 mg PO BID 05/05/20 08/09/20 History Allergies Allergy/AdvReac Type Severity Reaction Status Date / Time gluten Allergy Mild Diarrhea Verified 08/09/20 11:13 topiramate [From Topamax] AdvReac dizziness,d Verified 08/09/20 11:13 isoriented Physical Examination - Vital Signs Vital Signs: Vital Signs Temp Pulse Resp BP Pulse Ox 08/09/20 11:12 70 20 182/78 99 08/09/20 10:03 98.4 F 81 18 135/82 100 Intake and Output 08/08/20 08/09/20 08/09/20 22:59 06:59 14:59 Other: Weight 77.111 kg Gen.: The patient is well-nourished, well-developed and in no acute distress. HEENT: Head is atraumatic, normocephalic. Fundus not visualized. There is no scleral icterus. Mucous membranes are moist. Neck: Supple without carotid bruits Heart: Regular rate and rhythm Lungs: Clear to auscultation Extremities: Without edema Neurological examination Mental status: The patient is awake, alert and oriented 3. Her speech is fluent. Cranial nerves: Pupils are equal at 3 mm and reactive. Visual marks are full to confrontation. Extraocular movements are intact. There is no nystagmus. Facial sensation is intact. There is no facial asymmetry. Hearing is grossly intact. Uvula and palate are midline. Shoulder shrug is symmetric. Tongue protrudes midline. Motor: Strength is 5/5 throughout. Coordination: [id number]-[id number] and xmxa-uk-ikjj testing are intact. Sensation: Grossly intact to light touch throughout. There is no extinction with double simultaneous stimulation. Deep tendon reflexes: 2+/4+ in the left upper extremity. 1+/4+ in the right upper extremity. Bilateral patellar reflexes 2-3+/4+. I will Achilles reflexes 1+/4+. Bilateral plantar responses are flexor. Results - Laboratory Findings CBC and BMP: 08/09/20 10:28 08/09/20 10:28 Abnormal Lab Findings: Abnormal Labs 08/09/20 08/09/20 10:28 10:28 Hct 46.7 H Glucose 105 H Assessment and Plan Assessment: 1. Vertigo, likely secondary to benign positional vertigo. The patient currently has a normal neurological examination. There is no evidence on the examination of a central etiology for the patient's vertigo. 2. History of previous right basal ganglia infarct 3. Poor medication compliance. The patient reports not taking her antihypertensive or statin medications 4. History of chronic neck pain Plan: 1. If okay with medicine, the patient is neurologically stable for discharge. 2. She will have her MRI of the brain without gadolinium, as an outpatient 3. The patient was advised that she needs to begin taking her antihypertensive and statin medications 4. Patient was advised to eat a heart healthy diet and limit salt intake, as excessive salt will exacerbate hypertension and potentially benign positional vertigo as well 5. Exercise and weight loss are recommended 6. The patient is advised to follow-up with her primary care physician regarding MRI results
[2020-08-09] MEDS ORDERED: GABAPENTIN 300 MG CAP PO SCH (21:00)
--- NOTE | 2020-08-09 21:36 | P.HPIM ---
History of Present Illness H&P Date: 08/09/20 Chief Complaint: Dizzy History of presenting complaint: This is a very pleasant 65-year-old patient, follows with Dr. Kerry Serrano. Chronic stable medical conditions include asthma, DVT, GERD, hypertension, hyperlipidemia, stroke in 2013 with minimal left-sided weakness, celiac disease on a gluten-free diet, cervical herniated disc in the neck, hiatal hernia, seasonal ALLERGIES melanoma in 2017. Medication or depression stable. This morning when patient woke up and rolled over in bed she became extremely dizzy spell. Was unable to get up. This was really worse with movement. Patient is having nausea. Slight headache. No fever no chills. No change in his speech swallowing or any other focal weakness. Finally has been her to bring to the ER. By the time I saw the patient this afternoon symptoms are greatly improved. Patient did receive 1 dose of meclizine and Zofran in the ER. Review of systems: GEN.: None EYES: None HEENT: None NECK: None RESPIRATORY: None CARDIOVASCULAR: None GASTROINTESTINAL: None GENITOURINARY: None MUSCULOSKELETAL: Joint pains LYMPHATICS: None HEMATOLOGICAL: None PSYCHIATRY: None NEUROLOGICAL: As above Past medical history to include: Asthma, melanoma 2018, daily, GERD, hypertension, hyperlipidemia, pulmonary embolism, 2039 stroke with minimal left-sided weakness some balance issues, celiac disease on gluten-free diet, cervical herniated disc neck pain, hiatal hernia, seasonal ALLERGIES, depression. Social history: No smoking. Alcohol occasionally. Family history: Patient adopted Physical examination: VITAL SIGNS: 98.4, 81, 18, 130 582, 100% on room air GENERAL: BMI 26.6, sitting up, comfortable. EYES: Pupils equal. Conjunctiva normal. HEENT: External appearance of nose and ears normal, oral cavity grossly normal. NECK: JVD not raised; masses not palpable. HEART: First and second heart sounds are normal; no edema. LUNGS: Respiratory rate normal; clear to auscultation. ABDOMEN: Soft, nontender, liver spleen not palpable, no masses palpable. PSYCH: Alert and oriented x3; mood and affect normal. NEUROLOGICAL: Cranial nerves grossly intact; no facial asymmetry, power and sensation grossly intact. No nystagmus. No pass pointing. No dysdiadochokinesia.. LYMPHATICS: No lymph nodes palpable in the axilla and neck INVESTIGATIONS, reviewed in the clinical context: WBC 5.8 hemoglobin 15.3 platelets 187 potassium 4.4 creatinine 0.82 Troponin I less than 0.012 UA negative Coronavirus [PCR]-not detected EKG tracing personally reviewed by me-normal sinus rhythm Chest x-ray film personally reviewed by me-lung marks clear Computed tomography scan of the brain without contrast. Tiny remote infarct right basal ganglia stable compared to the prior study. CT angiography of the head and neck-mild to moderate etc. calcification in the carotid bifurcations. Assessment and plan: -This is a patient this morning when she rolled over in the bed she became very dizzy. Her symptoms are very positional. On the nausea. Over the period of time but this afternoon symptoms a great result. There was no cerebellar clinical signs. Computed tomography scan of the brain was negative. Neurology was consulted. Patient is diagnosed with benign paroxysmal positional vertigo. Patient not felt to have a stroke. -Intermittent asthma, uses Ventolin inhaler when necessary -GERD, use Tums when necessary -Hyperlipidemia, diet controlled -Essential hypertension -Seasonal ALLERGIES -Cervical spine herniated disc-continue with [place] Mobic -Celiac disease on gluten-free diet and -depression not otherwise-continue with Celexa-History of DVT on xarelto Care was discussed with the patient. Increase activity. If stable will be discharged later today. Patient be placed in observation Past Medical History Past Medical History: Asthma, Cancer, CVA/TIA, Deep Vein Thrombosis (DVT), GERD/Reflux, Hyperlipidemia, Hypertension, Pulmonary Embolus (PE) Additional Past Medical History / Comment(s): 2013 CVA with minimal L sided weakness, still has balance issues, celiac disease is on gluten free diet, UTi, cervical herniated discs-neck pain, hiatal hernia. past migraines, sinus problems, seasonal allergies, some dysphagia problems in October & November, is better now, hx. melanoma 2018 History of Any Multi-Drug Resistant Organisms: None Reported Past Surgical History: Tonsillectomy Additional Past Surgical History / Comment(s): ANJALI in 2013, colonoscopy. Melanoma removed in feb 2018, cervical surgery Past Anesthesia/Blood Transfusion Reactions: Postoperative Nausea & Vomiting (PONV) Past Psychological History: Depression Smoking Status: Never smoker Past Alcohol Use History: Occasional Past Drug Use History: None Reported - Past Family History Father History Unknown: Yes Additional Family Medical History / Comment(s): Pt does not know mother or father hx- she is adopted. Medications and Allergies Home Medications Medication Instructions Recorded Confirmed Type Albuterol Inhaler [Ventolin Hfa 2 puff INHALATION RT-Q4H PRN 04/23/20 08/09/20 History Inhaler] Citalopram Hydrobromide [CeleXA] 40 mg PO DAILY 04/23/20 08/09/20 History HYDROcodone/APAP 7.5-325MG [[place] 1 tab PO Q6H PRN 04/23/20 08/09/20 History 7.5-325] Meloxicam [Mobic] 15 mg PO DAILY 04/23/20 08/09/20 History Rivaroxaban [Xarelto] 10 mg PO DAILY 04/23/20 08/09/20 History methocarbamoL [Robaxin] 750 mg PO TID PRN 04/23/20 08/09/20 History rOPINIRole HCL [Requip] 0.5 mg PO HS PRN 04/23/20 08/09/20 History Gabapentin 300 mg PO BID 05/05/20 08/09/20 History Allergies Allergy/AdvReac Type Severity Reaction Status Date / Time gluten Allergy Mild Diarrhea Verified 08/09/20 11:13 topiramate [From Topamax] AdvReac dizziness,d Verified 08/09/20 11:13 isoriented Physical Exam Vitals: Vital Signs Temp Pulse Resp BP Pulse Ox 08/09/20 15:28 74 20 129/65 97 08/09/20 11:12 70 20 182/78 99 08/09/20 10:03 98.4 F 81 18 135/82 100 Intake and Output 08/09/20 08/09/20 08/09/20 06:59 14:59 22:59 Other: Weight 77.111 kg Results CBC & Chem 7: 08/09/20 10:28 08/09/20 10:28 Labs: Abnormal Lab Results - Last 24 Hours (Table) 08/09/20 08/09/20 Range/Units 10:28 10:28 Hct 46.7 H (34.0-46.0) % Glucose 105 H (74-99) mg/dL
--- NOTE | 2020-08-09 21:37 | P.DS ---
Providers Date of admission: 08/09/20 12:34 Expected date of discharge: 08/09/20 Attending physician: John Gage Consults: 08/09/20 12:33 Consult Physician Routine Consulting Provider: Laney Rubio Consult Reason/Comments: Dizziness; CVA Do you want consulting provider notified?: Yes Primary care physician: Jared Serrano [facility] Course: Chief Complaint: Dizzy History of presenting complaint: This is a very pleasant 65-year-old patient, follows with Dr. Kerry Serrano. Chronic stable medical conditions include asthma, DVT, GERD, hypertension, hyperlipidemia, stroke in 2013 with minimal left-sided weakness, celiac disease on a gluten-free diet, cervical herniated disc in the neck, hiatal hernia, seasonal ALLERGIES melanoma in 2017. Medication or depression stable. This morning when patient woke up and rolled over in bed she became extremely dizzy spell. Was unable to get up. This was really worse with movement. Patient is having nausea. Slight headache. No fever no chills. No change in his speech swallowing or any other focal weakness. Finally has been her to bring to the ER. By the time I saw the patient this afternoon symptoms are greatly improved. Patient did receive 1 dose of meclizine and Zofran in the ER. Patient was seen by neurology Dr. Rubio. Patient felt her BPPV. No definitive neurological workup. She may have a MRI as an outpatient with neurology follow-up. Care was discussed with the patient. Symptoms have resolved. Feeling well. Consultation: Dr. Kandy Rubio from neurology Past medical history to include: Asthma, melanoma 2017, daily, GERD, hypertension, hyperlipidemia, pulmonary embolism, 2039 stroke with minimal left-sided weakness some balance issues, celiac disease on gluten-free diet, cervical herniated disc neck pain, hiatal hernia, seasonal ALLERGIES, depression. Social history: No smoking. Alcohol occasionally. Family history: Patient adopted Physical examination: VITAL SIGNS: 98.4, 74, 20, 1 29 x 65, 97% room air GENERAL: BMI 26.6, sitting up, comfortable. EYES: Pupils equal. Conjunctiva normal. HEENT: External appearance of nose and ears normal, oral cavity grossly normal. NECK: JVD not raised; masses not palpable. HEART: First and second heart sounds are normal; no edema. LUNGS: Respiratory rate normal; clear to auscultation. ABDOMEN: Soft, nontender, liver spleen not palpable, no masses palpable. PSYCH: Alert and oriented x3; mood and affect normal. NEUROLOGICAL: Cranial nerves grossly intact; no facial asymmetry, power and sensation grossly intact. No nystagmus. No pass pointing. No dysdiadochokinesia.. INVESTIGATIONS, reviewed in the clinical context: WBC 5.8 hemoglobin 15.3 platelets 187 potassium 4.4 creatinine 0.82 Troponin I less than 0.012 UA negative Coronavirus [PCR]-not detected EKG tracing personally reviewed by me-normal sinus rhythm Chest x-ray film personally reviewed by me-lung marks clear Computed tomography scan of the brain without contrast. Tiny remote infarct right basal ganglia stable compared to the prior study. CT angiography of the head and neck-mild to moderate etc. calcification in the carotid bifurcations. Assessment and plan: -This is a patient this morning when she rolled over in the bed she became very dizzy. Her symptoms are very positional. On the nausea. Over the period of time but this afternoon symptoms a great result. There was no cerebellar clinical signs. Computed tomography scan of the brain was negative. Neurology was consulted. Patient is diagnosed with benign paroxysmal positional vertigo. Patient not felt to have a stroke. -Intermittent asthma, uses Ventolin inhaler when necessary -GERD, use Tums when necessary -Hyperlipidemia, diet controlled -Essential hypertension -Seasonal ALLERGIES -Cervical spine herniated disc-continue with [place] Mobic -Celiac disease on gluten-free diet and -depression not otherwise-continue with Celexa-History of DVT on xarelto Disposition: Home Plan - Discharge Summary New Discharge Prescriptions: Continue rOPINIRole HCL [Requip] 0.5 mg PO HS PRN PRN Reason: RESTLESS LEGS methocarbamoL [Robaxin] 750 mg PO TID PRN PRN Reason: Muscle Pain Rivaroxaban [Xarelto] 10 mg PO DAILY Meloxicam [Mobic] 15 mg PO DAILY HYDROcodone/APAP 7.5-325MG [[place] 7.5-325] 1 tab PO Q6H PRN PRN Reason: Pain Citalopram Hydrobromide [CeleXA] 40 mg PO DAILY Albuterol Inhaler [Ventolin Hfa Inhaler] 2 puff INHALATION RT-Q4H PRN PRN Reason: Shortness Of Breath Gabapentin 300 mg PO BID Discharge Medication List Albuterol Inhaler [Ventolin Hfa Inhaler] 2 puff INHALATION RT-Q4H PRN 04/23/20 [History] Citalopram Hydrobromide [CeleXA] 40 mg PO DAILY 04/23/20 [History] HYDROcodone/APAP 7.5-325MG [[place] 7.5-325] 1 tab PO Q6H PRN 04/23/20 [History] Meloxicam [Mobic] 15 mg PO DAILY 04/23/20 [History] Rivaroxaban [Xarelto] 10 mg PO DAILY 04/23/20 [History] methocarbamoL [Robaxin] 750 mg PO TID PRN 04/23/20 [History] rOPINIRole HCL [Requip] 0.5 mg PO HS PRN 04/23/20 [History] Gabapentin 300 mg PO BID 05/05/20 [History] Follow up Appointment(s)/Referral(s): Jared Serrano DO [Primary Care Provider] - 3 Days Karely Paris MD [Medical Doctor] - 1 Week Activity/Diet/Wound Care/Special Instructions: OP MRI with dr varela Discharge Disposition: HOME SELF-CARE
[2020-08-10] MEDS ORDERED: CITALOPRAM HYDROBROMIDE 20 MG TAB PO SCH (09:00)
[2020-08-10] MEDS ORDERED: MELOXICAM 7.5 MG TAB PO SCH (09:00)
[2020-08-10] MEDS ORDERED: RIVAROXABAN 10 MG TAB PO SCH (17:30)
== END 2020-08-09 16:18 | disposition home or self-care (01) ==
LOC: EC 09:59 → 3SCARD 12:34 → INTOOBSV 12:34 → UNDODISIN 16:18
PROVIDERS: ADMIT Hospitalist; ATTEND Hospitalist
DX: H81.10 Benign paroxysmal vertigo, unspecified ear (principal); J45.20 Mild intermittent asthma, uncomplicated; K21.9 Gastro-esophageal reflux disease without esophagitis; E78.5 Hyperlipidemia, unspecified; I10 Essential (primary) hypertension; J30.2 Other seasonal allergic rhinitis; K90.0 Celiac disease; M50.20 Other cervical disc displacement, unspecified cervical region; I69.354 Hemiplegia and hemiparesis following cerebral infarction affecting left non-dominant side; F32.9 Major depressive disorder, single episode, unspecified; Z86.718 Personal history of other venous thrombosis and embolism; Z85.820 Personal history of malignant melanoma of skin; Z86.711 Personal history of pulmonary embolism; R51.9 Headache, unspecified; G25.81 Restless legs syndrome; Z87.440 Personal history of urinary (tract) infections; Z79.1 Long term (current) use of non-steroidal anti-inflammatories (NSAID); Z79.899 Other long term (current) drug therapy; Z79.891 Long term (current) use of opiate analgesic; Z88.8 Allergy status to other drugs, medicaments and biological substances; Z91.018 Allergy to other foods; T46.5X6A Underdosing of other antihypertensive drugs, initial encounter; T46.6X6A Underdosing of antihyperlipidemic and antiarteriosclerotic drugs, initial encounter; Z20.822 Contact with and (suspected) exposure to COVID-19; Z79.01 Long term (current) use of anticoagulants; Z91.14 Patient's other noncompliance with medication regimen
CPT/HCPCS: 96361; 96374; 99285; 36415; 93005; 80053; 84484; 85025; 85610; 85730; 81003; 87635; 71046; 70496; 70450; 70498; G0378; J2405; Q9967

== ENCOUNTER 2021-02-28 12:05 | Emergency (ER) | payer OTHER ==
[2021-02-28] MEDS ORDERED: SODIUM CHLORIDE 0.9% 1,000 ML IV STA (12:15)
[2021-02-28] MEDS ORDERED: MECLIZINE 12.5 MG TAB PO STA (12:15)
[2021-02-28] MEDS ORDERED: METOCLOPRAMIDE 5 MG/ML 2 ML VIAL IVP STA (12:15)
--- NOTE | 2021-02-28 12:19 | ED ---
General Adult HPI - General Chief complaint: Neuro Symptoms/Deficit Stated complaint: cva Time Seen by Provider: 02/28/21 12:07 Source: patient, EMS Mode of arrival: EMS - History of Present Illness Initial comments: Dictation was produced using [employer] dictation software. please excuse any grammatical, word or spelling errors. Chief Complaint: 66-year-old female past medical history of chronic back pain, DVT, dyslipidemia hypertension presents with dizziness History of Present Illness: To 66-year-old female she states she was brought to the emergency department today for dizziness. Patient was at the [employer] getting her hair done. She was sitting in a chair for several minutes. She then stood up and started to feel severe dizziness. She denies that her symptoms were as if the room was spinning. Patient states she only feels dizzy whenever she stands up from a seated position. At rest she does not have any complaints. She has no pain complaints. No nausea vomiting or diarrhea. Patient has not had any any coughing, sore throat, runny nose, abdominal pain, dysuria. She has no constitutional symptoms. She woke up this morning feeling well. Yesterday she went to see her pain specialist and received a Toradol injection IM. The ROS documented in this emergency department record has been reviewed and confirmed by me. Those systems with pertinent positive or negative responses have been documented in the HPI. All other systems are other negative and/or noncontributory. PHYSICAL EXAM: General Impression: Alert and oriented x3, not in acute distress HEENT: Normocephalic atraumatic, extra-ocular movements intact, pupils equal and reactive to light bilaterally, mucous membranes moist. Cardiovascular: Heart regular rate and rhythm Chest: Able to complete full sentences, no retractions, no tachypnea Abdomen: abdomen soft, non-tender, non-distended, no organomegaly Musculoskeletal: Pulses present and equal in all extremities, no peripheral edema Motor: no focal deficits noted Neurological: CN II-XII grossly intact, no focal motor or sensory deficits noted, no nystagmus, NIH 0, no ataxia the extremities. Patient denies any symptoms while being evaluated in the [facility]. Skin: Intact with no visualized rashes Psych: Normal affect and mood ED course: 66-year-old female presents to the emergency department for positio nal dizziness. She denies any symptoms at respiration does not have any high- risk features. EKG interpretation: Ventricular rate 83, normal sinus rhythm, NV interval 156, QRS 72, QTc 446. No NV prolongation, no QTC prolongation, no ST or T-wave changes noted. Overall, this EKG is unremarkable To evaluation obtained. CBC shows mild macrocytosis. Metabolic panel shows BUN of 20. Perhaps mild dehydration. Patient reevaluated after IV fluids, Reglan and Antivert. Patient ambulating around the emergency department without any complications. She denies any sensation of the room spinning. She does feel lightheaded. No other symptoms noted. She feels no symptoms at rest. Strict return precautions were discussed. Patient warned of symptoms concerning for stroke and that if she expresses any of this to return back to the emergency department. Patient's clinical presentation consistent with stroke because she does not have persistent symptoms and her symptoms are only noticeable with movements. - Related Data Home Medications Medication Instructions Recorded Confirmed Albuterol Inhaler [Ventolin Hfa 2 puff INHALATION RT-Q4H PRN 04/23/20 08/09/20 Inhaler] Citalopram Hydrobromide [CeleXA] 40 mg PO DAILY 04/23/20 08/09/20 HYDROcodone/APAP 7.5-325MG [[place] 1 tab PO Q6H PRN 04/23/20 08/09/20 7.5-325] Meloxicam [Mobic] 15 mg PO DAILY 04/23/20 08/09/20 Rivaroxaban [Xarelto] 10 mg PO DAILY 04/23/20 08/09/20 methocarbamoL [Robaxin] 750 mg PO TID PRN 04/23/20 08/09/20 rOPINIRole HCL [Requip] 0.5 mg PO HS PRN 04/23/20 08/09/20 Gabapentin 300 mg PO BID 05/05/20 08/09/20 Allergies Allergy/AdvReac Type Severity Reaction Status Date / Time gluten Allergy Mild Diarrhea Verified 02/28/21 12:16 topiramate [From Topamax] AdvReac dizziness,d Verified 02/28/21 12:16 isoriented Review of Systems ROS Statement: Those systems with pertinent positive or pertinent negative responses have been documented in the HPI. ROS Other: All systems not noted in ROS Statement are negative. 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 past migraines, sinus problems, seasonal allergies, some dysphagia problems in October & November, is better now, hx. melanoma 2018 History of Any Multi-Drug Resistant Organisms: None Reported Past Surgical History: Tonsillectomy Additional Past Surgical History / Comment(s): ANJALI in 2013, colonoscopy. Melanoma removed in feb 2018, cervical surgery Past Anesthesia/Blood Transfusion Reactions: Postoperative Nausea & Vomiting (PONV) Past Psychological History: Depression Smoking Status: Never smoker Past Alcohol Use History: Occasional Past Drug Use History: None Reported - Past Family History Father History Unknown: Yes Additional Family Medical History / Comment(s): Pt does not know mother or father hx- she is adopted. Course Vital Signs 02/28/21 12:10 Temperature 98.4 F Pulse Rate 85 Respiratory 18 Rate Blood Pressure 147/71 O2 Sat by Pulse 98 Oximetry Medical Decision Making - Lab Data Result diagrams: 02/28/21 12:23 02/28/21 12:23 Lab Results 02/28/21 02/28/21 Range/Units 12:23 12:23 WBC 8.8 (3.8-10.6) k/uL RBC 4.48 (3.80-5.40) m/uL Hgb 14.8 (11.4-16.0) gm/dL Hct 45.4 (34.0-46.0) % MCV 101.2 H (80.0-100.0) fL MCH 33.0 (25.0-35.0) pg MCHC 32.6 (31.0-37.0) g/dL RDW 12.3 (11.5-15.5) % Plt Count 173 (150-450) k/uL MPV 7.6 Neutrophils % 68 % Lymphocytes % 22 % Monocytes % 5 % Eosinophils % 3 % Basophils % 0 % Neutrophils # 6.0 (1.3-7.7) k/uL Lymphocytes # 2.0 (1.0-4.8) k/uL Monocytes # 0.5 (0-1.0) k/uL Eosinophils # 0.2 (0-0.7) k/uL Basophils # 0.0 (0-0.2) k/uL Sodium 138 (137-145) mmol/L Potassium 3.9 (3.5-5.1) mmol/L Chloride 106 (98-107) mmol/L Carbon Dioxide 25 (22-30) mmol/L Anion Gap 7 mmol/L BUN 20 H (7-17) mg/dL Creatinine 1.01 (0.52-1.04) mg/dL Est GFR (CKD-EPI)AfAm 68 (>60 ml/min/1.73 sqM) Est GFR (CKD-EPI)NonAf 59 (>60 ml/min/1.73 sqM) Glucose 102 H (74-99) mg/dL Calcium 9.3 (8.4-10.2) mg/dL Magnesium 2.1 (1.6-2.3) mg/dL Disposition Clinical Impression: Dizziness Disposition: HOME SELF-CARE Condition: Fair Instructions (If sedation given, give patient instructions): Dizziness (ED) Is patient prescribed a controlled substance at d/c from ED?: No Referrals: Jared Serrano DO [Primary Care Provider] - 1-2 days
[2021-02-28 12:30] LABS: Basophils % (A) 0 %; Eosinophils # (A) 0.2 k/uL (0-0.7); Eosinophils % (A) 3 %; HCT 45.4 % (34.0-46.0); HGB 14.8 gm/dL (11.4-16.0); Lymphocytes % (A) 22 %; MCHC 32.6 g/dL (31.0-37.0); MCV 101.2 fL (80.0-100.0); Mean Platelet Volume 7.6; Monocytes # (A) 0.5 k/uL (0-1.0); Monocytes % (A) 5 %; Neutrophils % (A) 68 %; Platelet Count 173 k/uL (150-450); RBC 4.48 m/uL (3.80-5.40); RDW 12.3 % (11.5-15.5); WBC 8.8 k/uL (3.8-10.6)
[2021-02-28 12:42] LABS: Calcium 9.3 mg/dL (8.4-10.2); Magnesium 2.1 mg/dL (1.6-2.3); Potassium 3.9 mmol/L (3.5-5.1)
[2021-02-28 15:34] VITALS: RESP 16
[2021-02-28 16:18] VITALS: BP 136/80; PULSE 82; TEMP 97.6
== END 2021-02-28 16:18 | disposition home or self-care (01) ==
LOC: EC 12:05
DX: R42 Dizziness and giddiness (principal); I10 Essential (primary) hypertension; J45.909 Unspecified asthma, uncomplicated; K21.9 Gastro-esophageal reflux disease without esophagitis; E78.5 Hyperlipidemia, unspecified; F32.9 Major depressive disorder, single episode, unspecified; Z79.51 Long term (current) use of inhaled steroids; Z79.899 Other long term (current) drug therapy; Z79.1 Long term (current) use of non-steroidal anti-inflammatories (NSAID); Z79.01 Long term (current) use of anticoagulants; Z86.711 Personal history of pulmonary embolism; Z86.718 Personal history of other venous thrombosis and embolism; Z86.73 Personal history of transient ischemic attack (TIA), and cerebral infarction without residual deficits; Z85.820 Personal history of malignant melanoma of skin
CPT/HCPCS: 36415; 93005; 80048; 83735; 85025; 99284; 96374; 96361; J2765

== ENCOUNTER 2021-07-17 18:04 | Emergency (ER) | payer OTHER ==
[2021-07-17 18:33] VITALS: BP 123/60; PULSE 85; RESP 20; TEMP 97.8
[2021-07-17] MEDS ORDERED: SODIUM CHLORIDE 0.9% 1,000 ML IV STA (19:36)
[2021-07-17] MEDS ORDERED: LIDOCAINE VISCOUS 2% 15 ML CUP MUCOUS MEM ONE (19:38)
[2021-07-17] MEDS ORDERED: MECLIZINE 12.5 MG TAB PO STA ×2 (19:38→22:00)
[2021-07-17 20:21] LABS: Basophils % (A) 0 %; Eosinophils % (A) 0 %; HCT 46.5 % (34.0-46.0); HGB 16.1 gm/dL (11.4-16.0); Lymphocytes % (A) 12 %; MCH 34.1 pg (25.0-35.0); MCHC 34.6 g/dL (31.0-37.0); MCV 98.8 fL (80.0-100.0); Monocytes # (A) 1.3 k/uL (0-1.0); Monocytes % (A) 8 %; Neutrophils % (A) 79 %; Platelet Count 196 k/uL (150-450); RDW 12.9 % (11.5-15.5); WBC 16.5 k/uL (3.8-10.6)
[2021-07-17 20:27] LABS: Albumin 3.6 g/dL (3.5-5.0); Calcium 8.6 mg/dL (8.4-10.2); Magnesium 2.2 mg/dL (1.6-2.3); Potassium 4.1 mmol/L (3.5-5.1); Total Bilirubin 0.7 mg/dL (0.2-1.3); Total Protein 5.9 g/dL (6.3-8.2)
[2021-07-17 20:28] LABS: INR 1.2 (<1.2); Partial Thromboplastin Time 24.9 sec (22.0-30.0); Prothrombin Time 12.5 sec (9.0-12.0)
--- NOTE | 2021-07-17 20:31 | XR ---
EXAMINATION TYPE: XR chest 2V DATE OF EXAM: 07/17/2021 COMPARISON: 08/09/2020 HISTORY: Chest pain TECHNIQUE: FINDINGS: Heart and mediastinum are normal. Lungs are clear. Diaphragm is normal. There is cervical s pine fusion surgery. Bony thorax is intact. IMPRESSION: No active cardiopulmonary disease. Normal heart. No change.
--- NOTE | 2021-07-17 20:50 | CT ---
EXAMINATION TYPE: CT brain wo con DATE OF EXAM: 07/17/2021 COMPARISON: 08/09/2020 HISTORY: vertigo CT DLP: 1509.9 mGycm Automated exposure control for dose reduction was used. Images of the brain obtained without contrast. Ventricles have normal size. There is no mass effect or midline shift. There is no evidence of intrac ranial hemorrhage. There is some patchy white matter hypodensity around the lateral ventricles. Skull base is intact. There is normal aeration of the mastoid sinuses. There is hyperostosis frontalis. IMPRESSION: Small vessel ischemic changes. Mild atrophy. No change compared to the old exam.
--- NOTE | 2021-07-17 21:05 | CT ---
EXAMINATION TYPE: CT angio head neck DATE OF EXAM: 07/17/2021 COMPARISON: None HISTORY: vertigo CT DLP: 1509.9 mGycm Automated exposure control for dose reduction was used. CONTRAST: Performed with IV Contrast, patient injected with 65 mL of Isovue 370. Images obtained from the level of the aortic arch to the vertex of the brain without IV contrast. The re are Three-D postprocessed images. Mediastinum is intact. There is no adenopathy. There is normal branching pattern of the great vessels on the aortic arch. There is arterial flow in both subclavian arteries. There is arterial flow in th e common internal and external carotid arteries bilaterally. There is plaque formation and 25% stenos is at the origins of both internal cardioverter arteries. There is bilateral arterial flow in the marissa tebral arteries. There is no evidence of carotid or vertebral artery aneurysm or dissection. There is arterial flow in the vertebrobasilar artery system. There is arterial flow in the anterior middle and posterior cerebral arteries. There is no mass effec t. There is no evidence of intracranial arterial stenosis. There is normal enhancement of the venous sinuses. There is no evidence of aneurysm or neovascularity. The right posterior cerebral artery appe ars to fill significantly through the right posterior communicating artery. IMPRESSION: Mild atheromatous changes at the carotid artery bifurcations. No evidence of hemodynamic stenosis. Negative CT angiogram of the brain.
--- NOTE | 2021-07-17 22:02 | ED ---
General Adult HPI - General Chief complaint: Dizziness Stated complaint: sent for CT, vertigo Time Seen by Provider: 07/17/21 18:59 Source: patient, RN notes reviewed, old records reviewed Mode of arrival: ambulatory Limitations: no limitations - History of Present Illness Initial comments: Patient is a 66-year-old female with past medical history remarkable for TIA, GERD, hypertension, PE, recent nerve stimulator placed for chronic left upper extremity pain, vertigo who presents emergency Department complaining of vertigo since the surgery for the stimulator. She states that the vertigo is worse when moving around, standing. Describes it as room spinning sensation. He does have a history of vertigo. PCP was concerned, as she did stop blood thinners for a short period of time near The date of surgery which was 2 weeks ago, that she may have thrown a clot and she may be having a stroke. Presents emergency department for further evaluation. Denies any shortness breath, abdominal pain, nausea, vomiting. Does endorse a sensation of food stuck in her throat, but she is still tolerating by mouth intake, both solids and liquids without difficulty. - Related Data Home Medications Medication Instructions Recorded Confirmed Citalopram Hydrobromide [CeleXA] 40 mg PO DAILY 04/23/20 07/17/21 HYDROcodone/APAP 7.5-325MG [Withams 1 tab PO BID PRN 04/23/20 07/17/21 7.5-325] Rivaroxaban [Xarelto] 10 mg PO DAILY 04/23/20 07/17/21 Atorvastatin [Lipitor] 80 mg PO DAILY 07/17/21 07/17/21 Dexamethasone [Decadron] See Taper PO DIRECTED 07/17/21 07/17/21 Gabapentin 600 mg PO Q8H 07/17/21 07/17/21 Lisinopril [Prinivil] 10 mg PO DAILY 07/17/21 07/17/21 Previous Rx's Medication Instructions Recorded Meclizine [Antivert] 25 mg PO BID PRN 7 Days #14 tab 07/17/21 Allergies Allergy/AdvReac Type Severity Reaction Status Date / Time gluten Allergy Mild Diarrhea Verified 07/17/21 20:45 topiramate [From Topamax] AdvReac dizziness,d Verified 07/17/21 20:45 isoriented Review of Systems ROS Statement: Those systems with pertinent positive or pertinent negative responses have been documented in the HPI. Review of Systems: CONST: Denies fever EYES: Denies blurry vision ENT: Denies nasal congestion C/V: Denies Chest pain RESP: Denies shortness of breath GI: Denies abdominal pain : Denies dysuria SKIN: Denies rash. MSK: Denies joint pain. NEURO: Endorses vertigo ROS Other: All systems not noted in ROS Statement are negative. 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 past migraines, sinus problems, seasonal allergies, some dysphagia problems in October & November, is better now, hx. melanoma 2018 History of Any Multi-Drug Resistant Organisms: None Reported Past Surgical History: Tonsillectomy Additional Past Surgical History / Comment(s): ANJALI in 2013, colonoscopy. Melanoma removed in feb 2018, cervical surgery, spinal stimulator Past Anesthesia/Blood Transfusion Reactions: Postoperative Nausea & Vomiting (PONV) Past Psychological History: Depression Smoking Status: Never smoker Past Alcohol Use History: Occasional Past Drug Use History: None Reported - Past Family History Father History Unknown: Yes Additional Family Medical History / Comment(s): Pt does not know mother or father hx- she is adopted. General Exam - General Exam Comments Initial Comments: General: Appears in no acute distress. HEAD: Normal with no signs of head trauma. EYES: PERRLA, EOMI, conjunctiva normal, no discharge. Pupils are 2 mm and equal bilaterally. ENT: Hearing grossly intact, normal oropharynx. RESPIRATORY: Clear breath sounds bilaterally. No wheezes, rales, or rhonchi. C/V: Regular rate and rhythm. S1 and S2 auscultated, no edema, peripheral pulses 2+ and intact throughout ABD: Abd is soft, nontender, nondistended EXT: Normal range of motion, no obvious deformity SKIN: No rashes or lesions observed on exposed skin. NEURO: Alert and oriented 4. No focal sensory strength deficits. NIH is 0. GCS is 15. Patient does have vertigo symptoms when she stands, however is able to ambulate. Limitations: no limitations Course Vital Signs 07/17/21 18:28 Temperature 97.8 F Pulse Rate 85 Respiratory 20 Rate Blood Pressure 123/60 O2 Sat by Pulse 97 Oximetry Medical Decision Making - Medical Decision Making Based on the patient's presentation and physical exam, I am concerned for vertigo, but cannot rule out possibility of cardiopulmonary etiology at this time either. We will obtain basic cardiac labs, as well as CT and CT angiogram of the brain. She was in agreement this plan. She'll be given a 1 L fluid bolus as well as meclizine. Also provide her with viscous lidocaine for her dysphagia symptoms. EKG showed no signs of acute ischemia. Chest x-ray revealed no acute cardiopulmonary process. Plain CT showed no acute intracranial process. CT angiogram of the brain revealed no acute intracranial process as well. Labs were remarkable for a leukocytosis which is mild at 16 which is likely reactive. They remained unremarkable. Troponin is negative. On reevaluation, patient is able to freely ambulate around the room. She feels improved. Vertigo has resolved. I discussed with her admission versus discharge home, the decision was made to discharge home with close follow-up with her neurologist. They were in agreement this plan. I will provide the patient with a prescription for meclizine. I instructed the patient to follow up with their PCP in the next 3 days. I explained that the patient should return to the emergency department if they experience any worsening symptoms. Strict return precautions were discussed with the patient. The patient expressed understanding of these instructions. I answered all questions that the patient had. The patient was discharged home in good condition with their prescriptions and follow up information. - Lab Data Result diagrams: 07/17/21 20:15 07/17/21 20:15 Lab Results 07/17/21 07/17/21 07/17/21 Range/Units 20:15 20:15 20:15 WBC 16.5 H (3.8-10.6) k/uL RBC 4.70 (3.80-5.40) m/uL Hgb 16.1 H (11.4-16.0) gm/dL Hct 46.5 H (34.0-46.0) % MCV 98.8 (80.0-100.0) fL MCH 34.1 (25.0-35.0) pg MCHC 34.6 (31.0-37.0) g/dL RDW 12.9 (11.5-15.5) % Plt Count 196 (150-450) k/uL MPV 8.0 Neutrophils % 79 % Lymphocytes % 12 % Monocytes % 8 % Eosinophils % 0 % Basophils % 0 % Neutrophils # 13.0 H (1.3-7.7) k/uL Lymphocytes # 2.0 (1.0-4.8) k/uL Monocytes # 1.3 H (0-1.0) k/uL Eosinophils # 0.0 (0-0.7) k/uL Basophils # 0.0 (0-0.2) k/uL PT 12.5 H (9.0-12.0) sec INR 1.2 H (<1.2) APTT 24.9 (22.0-30.0) sec Sodium 134 L (137-145) mmol/L Potassium 4.1 (3.5-5.1) mmol/L Chloride 102 (98-107) mmol/L Carbon Dioxide 26 (22-30) mmol/L Anion Gap 6 mmol/L BUN 33 H (7-17) mg/dL Creatinine 1.03 (0.52-1.04) mg/dL Est GFR (CKD-EPI)AfAm 66 (>60 ml/min/1.73 sqM) Est GFR (CKD-EPI)NonAf 58 (>60 ml/min/1.73 sqM) Glucose 93 (74-99) mg/dL Calcium 8.6 (8.4-10.2) mg/dL Magnesium 2.2 (1.6-2.3) mg/dL Total Bilirubin 0.7 (0.2-1.3) mg/dL AST 29 (14-36) U/L ALT 29 (4-34) U/L Alkaline Phosphatase 52 (38-126) U/L Troponin I (0.000-0.034) ng/mL Total Protein 5.9 L (6.3-8.2) g/dL Albumin 3.6 (3.5-5.0) g/dL 07/17/21 Range/Units 20:15 WBC (3.8-10.6) k/uL RBC (3.80-5.40) m/uL Hgb (11.4-16.0) gm/dL Hct (34.0-46.0) % MCV (80.0-100.0) fL MCH (25.0-35.0) pg MCHC (31.0-37.0) g/dL RDW (11.5-15.5) % Plt Count (150-450) k/uL MPV Neutrophils % % Lymphocytes % % Monocytes % % Eosinophils % % Basophils % % Neutrophils # (1.3-7.7) k/uL Lymphocytes # (1.0-4.8) k/uL Monocytes # (0-1.0) k/uL Eosinophils # (0-0.7) k/uL Basophils # (0-0.2) k/uL PT (9.0-12.0) sec INR (<1.2) APTT (22.0-30.0) sec Sodium (137-145) mmol/L Potassium (3.5-5.1) mmol/L Chloride (98-107) mmol/L Carbon Dioxide (22-30) mmol/L Anion Gap mmol/L BUN (7-17) mg/dL Creatinine (0.52-1.04) mg/dL Est GFR (CKD-EPI)AfAm (>60 ml/min/1.73 sqM) Est GFR (CKD-EPI)NonAf (>60 ml/min/1.73 sqM) Glucose (74-99) mg/dL Calcium (8.4-10.2) mg/dL Magnesium (1.6-2.3) mg/dL Total Bilirubin (0.2-1.3) mg/dL AST (14-36) U/L ALT (4-34) U/L Alkaline Phosphatase (38-126) U/L Troponin I <0.012 (0.000-0.034) ng/mL Total Protein (6.3-8.2) g/dL Albumin (3.5-5.0) g/dL - EKG Data -: EKG Interpreted by Me EKG Comments: 12-lead Electrocardiogram Interpretation Note EKG was reviewed and interpreted by myself. 12-lead ECG performed at 1942 is interpreted by me as revealing normal sinus rhythm at a rate of 76 beats per minute. Powell is normal. VT Intervals 132 ms, QRS duration 72 ms, QTc is 418 ms.. There were no ST or T wave abnormalities to suggest myocardial ischemia or injury. R wave progression across the precordium was satisfactory. By my int erpretation this EKG is non-diagnostic for acute ischemia. Disposition Clinical Impression: Vertigo, Dysphagia Disposition: HOME SELF-CARE Condition: Good Instructions (If sedation given, give patient instructions): Vertigo (ED) Prescriptions: Meclizine [Antivert] 25 mg PO BID PRN 7 Days #14 tab PRN Reason: Vertigo Is patient prescribed a controlled substance at d/c from ED?: No Referrals: Jared Serrano DO [Primary Care Provider] - 1-2 days
== END 2021-07-17 22:36 | disposition home or self-care (01) ==
LOC: EC 18:04
DX: R42 Dizziness and giddiness (principal); R13.10 Dysphagia, unspecified; I10 Essential (primary) hypertension; J45.909 Unspecified asthma, uncomplicated; Z86.73 Personal history of transient ischemic attack (TIA), and cerebral infarction without residual deficits; E78.5 Hyperlipidemia, unspecified; F32.A Depression, unspecified; Z72.89 Other problems related to lifestyle
CPT/HCPCS: 36415; 93005; 80053; 83735; 84484; 85025; 85610; 85730; 71046; 70496; 70450; 70498; 99284; 96360; Q9967

== ENCOUNTER → 2021-11-23 | Outpatient (CLI) | payer OTHER | END | disposition home or self-care (01) | LOC: LABWHC1 13:24 | PROVIDERS: ATTEND Psychiatry & Neurology Neurology | DX: Z01.812 Encounter for preprocedural laboratory examination (principal); Z20.822 Contact with and (suspected) exposure to COVID-19 ==

== ENCOUNTER 2024-01-27 13:24 | Day surgery (SDC) | payer MEDICARE, OTHER ==
[2024-01-27] MEDS: IV FLUID CONTINUATION 1,000 ML IV ONE (13:42)
[2024-01-27] MEDS: LACTATED RINGERS 1,000 ML IV SCH (13:51)
[2024-01-27 13:53] VITALS: RESP 16; TEMP 97.9
[2024-01-27] MEDS: ONDANSETRON 4 MG/2 ML VIAL IVP STA (14:26)
[2024-01-27] MEDS ORDERED: PROPOFOL 10 MG/ML 20 ML VIAL IV ONE (15:19)
--- NOTE | 2024-01-27 15:39 | P.PCN ---
Date of Procedure: 01/27/24 Procedure(s) Performed: BRIEF HISTORY: Patient is a 69-year-old pleasant white female scheduled for an elective colonoscopy as a part of screening for colon cancer/positive Cologuard PROCEDURE PERFORMED: Colonoscopy. PREOPERATIVE DIAGNOSIS: Screening for colon cancer/positive Cologuard. IV sedation per Anesthesia. PROCEDURE: After informed consent was obtained, the patient, was brought into the endoscopy unit. IV sedation was administered by Anesthesia under continuous monitoring. Digital rectal examination was normal. Initially the Olympus CF-160 flexible video colonoscope was then inserted in the rectum, gradually advanced into the cecum without any difficulty. Careful examination was performed as the scope was gradually being withdrawn. Ileocecal valve and the appendiceal orifice were visualized and appeared normal. Prep was poor in several areas of the colon. Thorough irrigation was performed.. Mucosa of the cecum, ascending colon, transverse colon, descending colon, sigmoid colon, and rectum appeared normal. Moderate sigmoid diverticulosis. Retroflexion was performed in the rectum and no lesions were seen. The patient tolerated the procedure well. IMPRESSION: Normal-appearing colon from rectum to cecum with no evidence of colorectal neoplasia. Moderate sigmoid diverticulosis Poor prep in several areas of the colon RECOMMENDATIONS: Findings of this examination were discussed with the patient as well as her family.. She was advised to have repeat screening colonoscopy in 5 years because of the poor prep
[2024-01-27 15:46] VITALS: PULSE 84
[2024-01-27 16:12] VITALS: BP 153/81
== END 2024-01-27 16:23 | disposition home or self-care (01) ==
LOC: ORWHC2ENDO 13:24
PROVIDERS: ATTEND Internal Medicine Gastroenterology
DX: K57.30 Diverticulosis of large intestine without perforation or abscess without bleeding
CPT/HCPCS: 45378